=== PATIENT | female | born 1980 | race Caucasian/White ===

== ENCOUNTER 2020-06-02 16:57 | Outpatient (CLI) | payer OTHER, SELFPAY ==
--- NOTE | ~2020-06-02 | US_ITS ---
EXAMINATION: US thyroid DATE: 06/02/2020 17:37 INDICATION: Goiter. TECHNIQUE: Multiple ultrasound images of the thyroid were obtained. COMPARISON: Thyroid ultrasound 05/11/2019 FINDINGS: The right thyroid lobe measures 6.1 x 1.9 x 2.2 cm. The left thyroid lobe measures 5.8 x 1.9 x 2.4 c m. In the left thyroid lobe, there is a 7 mm solid, hypoechoic, pahsh-yyer-kajs nodule with smooth m argin without echogenic foci (TI-RADS TR4). In the left thyroid lobe, there is a 6 mm solid, very hyp oechoic, uuveu-ufws-skam nodule with smooth margin without echogenic foci (TR4). IMPRESSION: 1. Stable small thyroid nodules, likely not clinically significant. No follow-up is needed. Reviewed, dictated and finalized at location A. DUSTER IMPRESSION: 1. Stable small thyroid nodules, likely not clinically significant. No follow-u p is needed.
== END 2020-06-02 16:58 | disposition home or self-care (01) ==
PROVIDERS: PCP Family Medicine; Visit Provider Internal Medicine Endocrinology, Diabetes & Metabolism
DX: E04.2 Nontoxic multinodular goiter (principal)
CPT/HCPCS: 76536

== ENCOUNTER 2020-08-20 11:37 | Emergency (ER) | payer OTHER, SELFPAY ==
[2020-08-20 11:39] VITALS: BP 160/90; PULSE 86; RESP 18; TEMP 36.3; O2SAT 100
[2020-08-20 11:56] LABS: Glucose Point of Care 255 (65-105)
--- NOTE | 2020-08-20 12:14 | ED.GENADULT ---
HPI - General Adult General Chief complaint: Recheck/Abnormal Lab/Rx Stated complaint: High BS Time Seen by Provider: 08/20/20 11:55 Source: RN notes reviewed History of Present Illness HPI narrative: Patient presents to emergency department from home for elevated blood sugar. Patient states her blood sugars have been running high in the 3-4 100s over the past 3 days. She states that she is on insulin and has been taking all her medications as prescribed she states that with her elevated blood sugar she has been feeling fatigued denies any fevers or chills chest pain shortness of breath nausea vomiting diarrhea or any other symptoms Related Data Allergies Allergy/AdvReac Type Severity Reaction Status Date / Time azithromycin Allergy Unknown gi upset Verified 05/28/20 16:03 peanut oil Allergy Unknown Anaphylactic Verified 05/28/20 16:03 Shock Review of Systems Review of Systems: Narrative: Gen.: Denies fevers or chills ENT: Denies congestion Respiratory: Denies shortness of breath or cough CV: Denies chest pain or palpitations GI: Denies abdominal pain nausea, emesis or diarrhea Musculoskeletal: Denies back pain or muscle pain Neuro: Reports fatigue denies numbness or tingling Skin: Denies rash Except as documented, all other systems reviewed and negative PMFSH Past Medical History Medical History Diabetes Seizure Surgical History Surgical History H/O section H/O dilation and curettage Family History Family History Grandparent Family history of lung cancer Family history of malignant neoplasm of breast Other Family history of hypercholesterolemia Social History Social History Smoking status: Never smoker Smoking end date: 06/20/02 Alcohol intake: never Substance use: never Gender identity (if verbalized by the patient): Female Exam Narrative: Exam Narrative: APPEARANCE: No acute distress, nontoxic, resting in bed EYES: EOMI HEENT: Normocephalic, atraumatic, OMM RESPIRATORY: No respiratory distress Clear to auscultation bilaterally with no rhonchi wheezing or rales. CARDIOVASCULAR: Regular rate and rhythm without murmurs rubs or gallops. ABDOMINAL: Soft, nontender, nondistended, no rebound or guarding MUSCULOSKELETAl: Moves all extremities. No clubbing, cyanosis or edema. NEURO: Awake and alert. Following commands, speech normal, no focal deficits SKIN:: Warm, dry. No rashes lesions or abrasions PSYCHIATRIC: Normal affect/mood, Course Course Emergency Course: Called and discussed with TELEHEALTH CASE MANAGER on-call for patient's base filler Dr. Diaz. This time agrees with plan for discharge with patient follow-up as an outpatient states the patient may add a sliding scale bolus 2 hours after meals if needed Discussed with patient results of workup and diagnosis. Discussed need for follow-up with primary care, proper use of medication, and reasons to return to the emergency department. Patient understands and agrees to current treatment plan Vital Signs Vital signs: Vital Signs Temperature 97.3 F L 08/20/20 11:39 Pulse Rate 86 08/20/20 11:39 Respiratory Rate 18 08/20/20 11:39 Blood Pressure 160/90 H 08/20/20 11:39 Pulse Oximetry 100 08/20/20 11:39 Temperature 97.3 F L 08/20/20 11:39 Pulse Rate 86 08/20/20 11:39 Respiratory Rate 18 08/20/20 11:39 Blood Pressure 160/90 H 08/20/20 11:39 Pulse Oximetry 100 08/20/20 11:39 Medical Decision Making Vital Signs Vital Signs: Vital Signs Temperature 97.3 F L 08/20/20 11:39 Pulse Rate 86 08/20/20 11:39 Respiratory Rate 18 08/20/20 11:39 Blood Pressure 160/90 H 08/20/20 11:39 Pulse Oximetry 100 08/20/20 11:39 Temperature 97.3 F L 08/20/20 11:39 Pulse Rate 86
[2020-08-20 12:19] LABS: Basophils Absolute Auto 0.1 K/mm3 (0.0-0.1); Basophils Percent Auto 0.4 % (0.2-1.2); Eosinophils Absolute Auto 0.2 K/mm3 (0-0.3); Eosinophils Percent Auto 1.6 % (0-4.4); Hematocrit 42.8 % (37.0-47.0); Hemoglobin 14.5 g/dL (12.0-15.0); Immature Granulocyte Absolute 0.03 K/mm3 (0.00-0.031); Immature Granulocyte Percent A 0.3 % (0-0.5); Lymphocytes Absolute Auto 4.26 K/mm3 (0.9-3.2); Mean Corpuscular HGB Conc 33.9 g/dl (32-36); Mean Corpuscular Hemoglobin 29.8 pg (26-34); Mean Corpuscular Volume 87.9 fl (80-100); Mean Platelet Volume 10.1 fl (7.4-10.4); Monocytes Absolute Auto 0.7 K/mm3 (0.1-0.6); Monocytes Percent Auto 6.6 % (2.6-8.5); Neutrophils Percent Auto 53.1 % (45.5-73.1); Platelet Count Result 332 k/mm3 (150-375); Red Blood Count 4.87 M/mm3 (4.2-5.4); Red Cell Distribution Width 13.4 % (11.5-14.5); White Blood Count 11.2 K/mm3 (4.5-10.0)
[2020-08-20 12:24] LABS: Add Urine Microscopic? YES; Appearance Urine Clear (Clear); Bilirubin Urine Negative (Negative); Blood Urine Negative (Negative); Color Urine Yellow (Yellow); Glucose Urine UA 3+ mg/dL (Negative); Ketones Urine Negative (Negative); Leukocyte Esterase Ur Trace LEU/UL (Negative); Mucus Urine Rare /lpf; Nitrate Urine Negative (Negative); Protein Urine 1+ mg/dL (Negative); Specific Grav Ur 1.032 (1.001-1.035); Squamous Epithelial Cell Urine Many /hpf (Few); Urobilinogen Urine Negative mg/dL (<2.0); WBC Urine 0-3 /hpf
[2020-08-20] MEDS: SODIUM CHLORIDE 0.9% IV 1,000 ML 999 ML IV CONT (12:27)
[2020-08-20 12:39] LABS: Beta-Hydroxybutyrate/Acetoacetate 0.12 mmol/L (0.02-0.27)
[2020-08-20 12:59] LABS: Alanine Aminotransferase 36 U/L (4-35); Albumin Level 3.6 g/dL (3.5-5.1); Alkaline Phosphatase 97 U/L (38-126); Anion Gap 6 mmol/L (8-16); Aspartate Amino Transferase 34 U/L (14-36); Bilirubin,Total 0.2 mg/dL (0.2-1.3); Blood Urea Nitrogen 9 mg/dL (7-17); Calcium 8.4 mg/dL (8.4-10.2); Carbon Dioxide 27 mmol/L (22-30); Chloride 100 mmol/L (98-107); Estimated CRCL calculation 138 ml/min; Estimated Glomerular Filt Rate > 60; Glucose 304 mg/dL (65-105); Magnesium 1.6 mg/dL (1.6-2.3); Phosphorus 3.4 mg/dL (2.5-4.5); Potassium 4.2 mmol/L (3.4-5.0); Sodium 133 mmol/L (137-145)
[2020-08-20 14:10] LABS: Glucose Point of Care 228 (65-105)
== END 2020-08-20 15:12 | disposition home or self-care (01) ==
PROVIDERS: Emergency Provider Emergency Medicine; PCP Family Medicine
DX: E11.65 Type 2 diabetes mellitus with hyperglycemia (principal); Z79.4 Long term (current) use of insulin
CPT/HCPCS: 36415; 80053; 81001; 81025; 82010; 82948; 83735; 84100; 85025; 96360; 99283; J7030

== ENCOUNTER 2020-09-01 06:57 | Outpatient (CLI) | payer OTHER, SELFPAY ==
--- NOTE | ~2020-09-01 | CT_ITS ---
EXAMINATION: CT abdomen wo/w con DATE: 09/01/2020 07:43 INDICATION: Abnormal cortisol level. TECHNIQUE: Computed tomography (CT) of the abdomen was performed without and with 100 mL Omnipaque 35 0 intravenous contrast. Automated exposure control and iterative reconstruction technique were employ ed. The dose-length product was 2255.38 mGy-cm. COMPARISON: Chest CT 11/20/2018 FINDINGS: The visualized portions of the lung bases demonstrate mild atelectasis in lingula. No pleur al effusion. The heart size is normal. No pericardial effusion. There is diffuse hepatic steatosis. T he gallbladder, spleen, pancreas, and left adrenal gland are normal. There is a 14 mm mass in right a drenal gland measuring low-attenuation without change in size, consistent with an adenoma. There are simple cysts in the kidneys measuring up to 9 mm on the left. There is a 2.7 cm hemorrhagic cyst in l eft kidney. There is a 3 mm stone in right kidney. There is a 3 mm stone in left kidney. There are no dilated loops of bowel. There are no pathologically enlarged lymph nodes. There is no free intraperi toneal fluid. There is mild lumbar spondylosis. IMPRESSION: 1. 14 mm right adrenal adenoma. 2. Diffuse hepatic steatosis. Reviewed, dictated and finalized at location A.
== END 2020-09-01 06:58 | disposition home or self-care (01) ==
LOC: ANHIMG 06:59
PROVIDERS: PCP Family Medicine; Visit Provider Internal Medicine Endocrinology, Diabetes & Metabolism
DX: R94.7 Abnormal results of other endocrine function studies (principal); D35.01 Benign neoplasm of right adrenal gland; K76.0 Fatty (change of) liver, not elsewhere classified
CPT/HCPCS: 74170; Q9967

== ENCOUNTER 2021-03-02 11:23 | Outpatient (CLI) | payer OTHER, SELFPAY ==
--- NOTE | ~2021-03-02 | US_ITS ---
EXAMINATION: US venous doppler LE RT DATE: 03/02/2021 11:52 INDICATION: Right lower limb swelling TECHNIQUE: Simmons scale images without and with compression and Doppler images of the right lower extre mity veins were obtained. COMPARISON: None FINDINGS: The right common femoral vein, profunda femoral vein, femoral vein, popliteal vein, peronea l trunk, posterior tibial veins, and greater saphenous vein are patent. IMPRESSION: 1. Patent right lower extremity veins. No evidence of deep venous thrombosis. Reviewed, dictated and finalized at location A.
== END 2021-03-02 11:24 | disposition home or self-care (01) ==
LOC: ANHIMG 11:25
PROVIDERS: PCP Family Medicine; Visit Provider Physician Assistant
DX: M79.604 Pain in right leg (principal); M79.89 Other specified soft tissue disorders
CPT/HCPCS: 93971

== ENCOUNTER 2021-04-01 15:19 | Emergency (ER) | payer OTHER, SELFPAY ==
[2021-04-01 15:40] VITALS: BP 135/85; PULSE 86; RESP 18; TEMP 36.9; O2SAT 98
--- NOTE | 2021-04-01 16:38 | ED.GENADULT ---
HPI - General Adult General Chief complaint: Extremity Injury, Upper Stated complaint: Rt Arm Pain Time Seen by Provider: 04/01/21 16:23 Source: patient and RN notes reviewed Mode of arrival: ambulatory Limitations: no limitations History of Present Illness HPI narrative: Patient presents today complaining of pain to the right forearm and wrist x2 weeks that has been worsening since onset. Denies injury or trauma. Denies numbness or tingling in the arm or hand. Currently rates her pain 8/10 which increases with movement and gripping. MD complaint: Forearm and wrist pain Related Data Home Medications Medication Instructions Recorded Confirmed norethindrone 0.5 mg-ethinyl 1 tablet PO DAILY 10/28/20 03/25/21 estradiol 35 mcg tablet Allergies Allergy/AdvReac Type Severity Reaction Status Date / Time peanut oil Allergy Severe Anaphylactic Verified 04/01/21 15:43 Shock azithromycin Allergy Intermediate gi upset Verified 04/01/21 15:43 Review of Systems Review of Systems: CONSTITUTIONAL: Denies body aches, fever, chills, or sweats. EYES: Denies visual changes, redness, or discharge. ENT: Denies rhinorrhea, congestion, sore throat, or otalgia. CARDIOVASCULAR: Denies chest pain, palpitations, or edema. RESPIRATORY: Denies cough or dyspnea. GASTROINTESTINAL: Denies abdominal pain, nausea, vomiting, or diarrhea. GENITOURINARY: Denies dysuria or hematuria. SKIN: Denies rash, itching, or wounds. MUSCULOSKELETAL: Denies back pain, or myalgia. + Right forearm and wrist pain NEUROLOGIC: Denies headache, numbness, tingling, or weakness. PSYCH: Denies depression or anxiety. [facility] Past Medical History Medical History Chronic headaches Diabetes Seizure Surgical History Surgical History H/O section H/O dilation and curettage Family History Family History Grandparent Family history of lung cancer Family history of malignant neoplasm of breast Other Cerebrovascular accident Diabetes mellitus Family history of hypercholesterolemia Social History Social History Alcohol intake: never Substance use: never Gender identity (if verbalized by the patient): Female Comments At time of signature, I have reviewed and agree with nursing past medical, surgical, social and family history unless otherwise noted. Please see nursing chart for further information. There is no relevant family history pertinent to the presenting complaint Exam Narrative: GENERAL: Well-appearing, well-nourished, and in no acute distress. HEAD: Normocephalic, atraumatic. EYES: EOMI. No redness or drainage. Conjunctivae normal. ENT: Mucous membranes pink and moist. NECK: Normal AROM. CHEST: No respiratory distress. EXTREMITIES: Right arm: Patient localizes her pain to the right wrist. The elbow is nontender. The forearm is mildly tender at the distal ulnar area. No edema noted throughout the arm. No ecchymosis or erythema noted. Distal sensation intact. Capillary refill normal. Radial pulse normal. Full range of motion of the elbow and wrist without increased pain. SKIN: Warm, dry, no rash. Capillary refill normal. Normal skin turgor. NEURO: No focal deficits. Alert and oriented x3. Gait steady. PSYCH: Normal affect. No signs of depression or anxiety. Course Vital Signs Vital signs: Vital Signs Temperature 98.5 F 04/01/21 15:40 Pulse Rate 86 04/01/21 15:40 Respiratory Rate 18 04/01/21 15:40 Blood Pressure 135/85 04/01/21 15:40 Pulse Oximetry 98 04/01/21 15:40 Temperature 98.5 F 04/01/21 15:40 Pulse Rate 86 04/01/21 15:40 Respiratory Rate 18 04/01/21 15:40 Blood Pressure 135/85 04/01/21 15:40 Pulse Oximetry 98 04/01/21 15:40 Rev
== END 2021-04-01 16:51 | disposition home or self-care (01) ==
PROVIDERS: Emergency Provider Nurse Practitioner; PCP Family Medicine
DX: M77.9 Enthesopathy, unspecified (principal); E11.9 Type 2 diabetes mellitus without complications; G40.909 Epilepsy, unspecified, not intractable, without status epilepticus
CPT/HCPCS: 99212; G0463

== ENCOUNTER 2021-04-04 07:30 | Outpatient (CLI) | payer OTHER, SELFPAY ==
--- NOTE | ~2021-04-04 | MR_ITS ---
EXAMINATION: MR brain/brain stem wo/w con DATE: 04/04/2021 10:14 CDT INDICATION: Headache TECHNIQUE: Magnetic resonance imaging (MRI) of the brain and brainstem was performed without and with 20 cc MultiHance intravenous contrast. Sequences included sagittal and axial T1-weighted SE, axial d iffusion-weighted FS SE, axial T2*-weighted GRE, axial T2-weighted FLAIR Propeller, and axial T2-weig hted Propeller. Apparent diffusion coefficient (ADC) maps were created. COMPARISON: MRI dated 11/11/2018 FINDINGS: The brain volume and ventricular system are within normal limits. The brain parenchymal si gnal intensity pattern and kyle/white matter is normal and there is no evidence of hemorrhage, space occupying masses or infarctions. The flow signal voids of the major arterial structures about the [place] and within the aleksandr r dural venous sinuses appear grossly unremarkable and patent. The seventh and eighth cranial nerve complexes are normal. The mid sagittal image demonstrates a normal craniovertebral junction and tra us callosum. The paranasal sinuses are grossly unremarkable. No abnormal contrast enhancement was appreciated. IMPRESSION: 1: Unremarkable MRI of the brain. Reviewed, dictated and finalized at location A.
[2021-04-04 08:14] LABS: Estimated Glomerular Filt Rate > 60
== END 2021-04-04 07:31 | disposition home or self-care (01) ==
PROVIDERS: PCP Family Medicine; Visit Provider Psychiatry & Neurology Neurology
DX: G40.909 Epilepsy, unspecified, not intractable, without status epilepticus (principal); G89.29 Other chronic pain; R51.9 Headache, unspecified
CPT/HCPCS: 70553; A9577

== ENCOUNTER 2021-04-10 06:35 | Outpatient (CLI) | payer OTHER, SELFPAY ==
--- NOTE | 2021-04-10 11:35 | WPDNEUROLOGY ---
Neurology EEG Report General Information Date of Study: 04/10/21 TEST eeg DIAGNOSIS nocturnal seizures CONDITION OF RECORDING awake drowsy and sleep EEG NUMBER [id number] CLINICAL HISTORY patient reported she has history of seizures and migraines. Seizures are pretty well controlled for the migraines are almost every day EEG DESCRIPTION whole record consists of low voltage to medium voltage 15 to 21 hertz per 2nd beta activity admixed with intermittent low voltage to medium voltage 5 to 7 hertz per 2nd theta activity. Bilateral symmetrical sleep activity seen during sleep. Hyperventilation not done photic stimulation produced normal drive. Non paroxysmal. Nonfocal. Nonlateralizing. IMPRESSION No significant abnormalities noted
== END 2021-04-10 06:36 | disposition home or self-care (01) ==
PROVIDERS: PCP Family Medicine; Visit Provider Psychiatry & Neurology Neurology
DX: R56.9 Unspecified convulsions (principal)
CPT/HCPCS: 95816

== ENCOUNTER 2021-04-28 10:26 | Emergency (ER) | payer OTHER, SELFPAY ==
--- NOTE | ~2021-04-28 | XR_ITS ---
EXAMINATION: XR thoracic spine 3V DATE: 04/28/2021 11:18 INDICATION: Mid back pain TECHNIQUE: AP, lateral and lateral swimmer's views of the thoracic spine were obtained. COMPARISON: 11/21/2003 FINDINGS: There is no fracture, dislocation, or subluxation. The vertebral body heights, alignment, a nd intervertebral disc spaces are normal. The paravertebral soft tissues are unremarkable. IMPRESSION: 1. No acute osseous abnormality. Reviewed, dictated and finalized at location B. IFIED FIRE INVESTIGATOR
--- NOTE | ~2021-04-28 | XR_ITS ---
EXAMINATION: XR lumbar spine min 4V DATE: 04/28/2021 11:18 INDICATION: Low back pain TECHNIQUE: Anteroposterior, lateral, and bilateral oblique views of the lumbar spine, and cone-down l ateral view of the lumbosacral junction were obtained. COMPARISON: None. FINDINGS: There are 2 mm stable retrolisthesis of L5 on S1. Vertebral body alignment is otherwise nor mal. The vertebral body heights are maintained. There is no fracture. IMPRESSION: 1. Mild lumbar spondylosis without acute findings or significant interval change. Reviewed, dictated and finalized at location B. ED OPERATOR IMPRESSION: 1. Mild lumbar spondylosis without acute findings or significant interval alona gilbert
[2021-04-28 10:28] VITALS: BP 152/97; PULSE 82; RESP 20; TEMP 36.3; O2SAT 99
--- NOTE | 2021-04-28 12:58 | ED.BACK ---
HPI - Back Pain/Injury General Chief Complaint: Back Pain/Injury <Carole Diaz PA-C - Last Filed: 04/28/21 13:09> Stated Complaint: back pain, recent fall <Carole Diaz PA-C - Last Filed: 04/28/21 13:09> Time Seen by Provider: 04/28/21 10:48 <Carole Diaz PA-C - Last Filed: 04/28/21 13:09> Source: patient <MIKEY Mcclure Last Filed: 04/28/21 13:09> Mode of arrival: ambulatory <MIKEY Mcclure Last Filed: 04/28/21 13:09> Limitations: no limitations <Carole Diaz PA-C - Last Filed: 04/28/21 13:09> History of Present Illness HPI Narrative: Patient is a 32-year-old female with seizure history presenting with chief complaint of thoracic and lumbar back pain that began on Tuesday after having a seizure in the bathroom. Patient suspects that she possibly hit her back on the ledge while falling but is unsure. Patient reports that she has been taking cyclobenzaprine that was previously prescribed to her for her knee pain but has not remitted her symptoms. Patient denies any headache, loss of bowel or bladder function, saddle paresthesia, nausea, vomiting, diarrhea or any other symptoms. <Carole Diaz PA-C - Last Filed: 04/28/21 13:09> Related Data Home Medications: Home Medications Medication Instructions Recorded Confirmed ergocalciferol (vitamin D2) 04/28/21 insulin glargine [Lantus Solostar SUBCUT 04/28/21 U-100 Insulin] insulin lispro SUBCUT 04/28/21 levetiracetam PO 04/28/21 lisinopril 04/28/21 montelukast mg 04/28/21 norethindrone-ethin estradiol tablet 04/28/21 [Nortrel 1/35 (28)] pioglitazone mg 04/28/21 semaglutide [Ozempic] mg SUBCUT 04/28/21 spironolactone 04/28/21 <Carole Diaz PA-C - Last Filed: 04/28/21 13:09> Allergies/Adverse Reactions: Allergies Allergy/AdvReac Type Severity Reaction Status Date / Time peanut oil Allergy Severe Dyspnea / Verified 04/28/21 10:53 SOB azithromycin Allergy Intermediate gi upset Verified 04/28/21 10:53 <Carole Diaz PA-C - Last Filed: 04/28/21 13:09> Review of Systems Review of Systems: CONSTITUTIONAL: Denies fever, chills, or sweats. EYES: Denies visual changes, redness, or discharge. ENT: Denies rhinorrhea, congestion, sore throat, or otalgia. CARDIOVASCULAR: Denies chest pain, palpitations, or edema. RESPIRATORY: Denies cough or dyspnea. GASTROINTESTINAL: Denies abdominal pain, nausea, vomiting, or diarrhea. GENITOURINARY: Denies dysuria or hematuria. SKIN: Denies rash or itching. MUSCULOSKELETAL: Reports back pain, denies joint pain, or myalgia. NEUROLOGIC: Denies headache, numbness, dizziness, or weakness. PSYCHIATRIC: Denies anxiety or depression. <Carole Diaz PA-C - Last Filed: 04/28/21 13:09> PENDING SALE TO [facility] Past Medical History Medical History: Medical History Chronic headaches Diabetes Seizure <Carole Diaz PA-C - Last Filed: 04/28/21 13:09> Surgical History Surgical History: Surgical History H/O section H/O dilation and curettage <Carole Diaz PA-C - Last Filed: 04/28/21 13:09> Family History Family History: Family History Grandparent Family history of lung cancer Family history of malignant neoplasm of breast Other Cerebrovascular accident Diabetes mellitus Family history of hypercholesterolemia <Carole Diaz PA-C - Last Filed: 04/28/21 13:09> Social History Social History: Social History Alcohol intake: never Substance use: never Gender identity (if verbalized by the patient): Female <Carole Diaz PA-C - Last Filed: 04/28/21 13:09> Exam Narrative: GENERAL: Well-appearing, well-nourished, and in no acute distress. HEAD: Normocephalic, atrau
== END 2021-04-28 13:42 | disposition home or self-care (01) ==
PROVIDERS: Emergency Provider General Practice; PCP Family Medicine
DX: M54.9 Dorsalgia, unspecified (principal); M54.50 Low back pain, unspecified; E11.9 Type 2 diabetes mellitus without complications; Z79.4 Long term (current) use of insulin
CPT/HCPCS: 72072; 72110; 99283

== ENCOUNTER 2021-05-04 14:58 | Outpatient (CLI) | payer OTHER, SELFPAY ==
[2021-05-04 15:39] LABS: Add Urine Microscopic? YES; Appearance Urine Cloudy (Clear); Bacteria Urine Trace /hpf; Bilirubin Urine Negative (Negative); Blood Urine Negative (Negative); Color Urine Yellow (Yellow); Glucose Urine UA 3+ mg/dL (Negative); Ketones Urine Negative (Negative); Leukocyte Esterase Ur Trace LEU/UL (NEGATIVE); Mucus Urine Rare /lpf; Nitrate Urine Negative (Negative); Protein Urine Negative (Negative); Specific Grav Ur 1.027 (1.001-1.035); Squamous Epithelial Cell Urine Many /hpf (Few)
== END 2021-05-04 14:59 | disposition home or self-care (01) ==
LOC: ANHLAB 15:00
PROVIDERS: PCP Family Medicine; Visit Provider Physician Assistant
DX: M54.9 Dorsalgia, unspecified (principal)
CPT/HCPCS: 81001

== ENCOUNTER 2021-05-11 16:21 | Outpatient (CLI) | payer OTHER, SELFPAY ==
--- NOTE | ~2021-05-11 | CT_ITS ---
EXAMINATION: CT abdomen pelvis wo con DATE: 05/11/2021 16:48 INDICATION: Calculus of kidney. TECHNIQUE: Computed tomography (CT) of the abdomen and pelvis was performed without intravenous contr ast. Automated exposure control and iterative reconstruction technique were employed. The dose-length product was 1222.19 mGy-cm. COMPARISON: CT abdomen 09/01/2020 FINDINGS: The visualized portions of the lung bases are clear without pneumonia or pleural effusion. The heart size is normal. No pericardial effusion. There is diffuse hepatic steatosis. The gallbladde r, spleen, pancreas, and left adrenal gland are normal. There is a 14 mm mass in right adrenal gland measuring low attenuation, consistent with an adenoma. There is a 2 mm stone in right kidney. There i s a 7 mm cyst in right kidney. There is a 3 mm stone in left kidney. There is a 3.[address] in left kidney. There are no dilated loops of bowel. The appendix is normal. There are no patholog ically enlarged lymph nodes. There is no free intraperitoneal fluid. There is mild lumbar spondylosis . IMPRESSION: 1. Small bilateral nonobstructing kidney stones. 2. Diffuse hepatic steatosis. Reviewed, dictated and finalized at location B. CTOR CARDIOVASCULAR
== END 2021-05-11 16:22 | disposition home or self-care (01) ==
LOC: ANHIMG 16:25
PROVIDERS: PCP Family Medicine; Visit Provider Physician Assistant
DX: N20.0 Calculus of kidney (principal); N28.1 Cyst of kidney, acquired
CPT/HCPCS: 74176

== ENCOUNTER 2021-05-20 06:40 | Outpatient (CLI) | payer OTHER, SELFPAY ==
[2021-05-20 08:08] LABS: Hemoglobin A1C 9.5 % (<5.7)
[2021-05-20 08:28] LABS: LDL Cholesterol Direct 127 mg/dL
[2021-05-20 08:31] LABS: Alanine Aminotransferase 51 U/L (4-35); Albumin Level 4.1 g/dL (3.5-5.1); Alkaline Phosphatase 109 U/L (38-126); Anion Gap 7 mmol/L (8-16); Aspartate Amino Transferase 43 U/L (14-36); Bilirubin,Total 0.3 mg/dL (0.2-1.3); Blood Urea Nitrogen 11 mg/dL (7-17); Calcium 9.2 mg/dL (8.4-10.2); Carbon Dioxide 25 mmol/L (22-30); Chloride 101 mmol/L (98-107); Cholesterol 189 mg/dL (0-200); Estimated Glomerular Filt Rate > 60; Glucose 252 mg/dL (65-110); HDL Direct 45 mg/dL; Sodium 133 mmol/L (137-145); Triglycerides 81 mg/dL (<150)
[2021-05-20 08:34] LABS: Free T4 Free Thyroxine 1.06 ng/mL (0.78-2.19); Vitamin D 25 Hydroxy 19.4 ng/mL
[2021-05-20 08:50] LABS: Thyroid Stimulating Hormone 0.846 uIU/mL (0.465-4.680)
[2021-05-20 09:30] LABS: Creatinine Urine 112.4 mg/dL
[2021-05-20 09:34] LABS: MALB Creatinine Ratio 5.8 mg/g (0-30); Microalbumin Urine Random 6.5 mg/L (0-16.7)
[2021-05-22 19:41] LABS: Glutamic acid decarboxylase AA <5 IU/mL (<5)
[2021-05-22 21:31] LABS: Adrenocorticotropic Hormone <5 pg/mL (6-50)
[2021-05-23 07:16] LABS: C-Peptide 2.16 ng/mL (0.80-3.85)
[2021-05-23 09:45] LABS: DHEA-Sulfate 67 mcg/dL (23-266)
[2021-05-26 21:46] LABS: Zinc Transporter 8 Antibody <10 U/mL (<15)
[2021-05-27 15:32] LABS: PRA 25.19 ng/mL/h (0.25-5.82)
[2021-05-31 21:16] LABS: Islet Cell Antibody Screen NEGATIVE (NEGATIVE)
== END 2021-05-20 06:41 | disposition home or self-care (01) ==
LOC: ANHLAB 06:42
PROVIDERS: PCP Family Medicine; Visit Provider Internal Medicine Endocrinology, Diabetes & Metabolism
DX: E11.9 Type 2 diabetes mellitus without complications (principal); Z79.4 Long term (current) use of insulin
CPT/HCPCS: 36415; 80053; 80061; 82024; 82043; 82088; 82306; 82533; 82627; 83036; 84244; 84439; 84443; 84681; 86341

== ENCOUNTER 2021-07-27 10:34 | Outpatient (RCR) | payer OTHER, SELFPAY | END 2021-07-27 10:34 | disposition home or self-care (01) | LOC: ANHPT 10:34 | PROVIDERS: PCP Family Medicine; Visit Provider Physician Assistant Medical | DX: M54.50 Low back pain, unspecified (principal) | CPT/HCPCS: 99199 ==

== ENCOUNTER 2021-08-11 15:08 | Outpatient (CLI) | payer OTHER, SELFPAY ==
[2021-08-11 15:39] LABS: Anion Gap 6 mmol/L (8-16); Blood Urea Nitrogen 11 mg/dL (7-17); Calcium 8.9 mg/dL (8.4-10.2); Carbon Dioxide 27 mmol/L (22-30); Chloride 102 mmol/L (98-107); Estimated Glomerular Filt Rate > 60; Glucose 171 mg/dL (65-110); Potassium 3.9 mmol/L (3.4-5.0); Sodium 135 mmol/L (137-145)
== END 2021-08-11 15:09 | disposition home or self-care (01) ==
LOC: ANHSURGERY 15:09
PROVIDERS: Anesthesiology; PCP Family Medicine; Visit Provider Plastic Surgery
DX: Z01.812 Encounter for preprocedural laboratory examination (principal); E11.9 Type 2 diabetes mellitus without complications
CPT/HCPCS: 36415; 80048

== ENCOUNTER 2021-08-13 00:20 | Day surgery (SDC) | payer OTHER, SELFPAY ==
[2021-08-10 09:28] VITALS: BMI 51.5
--- NOTE | 2021-08-10 09:42 | PC.NURSE ---
Report to the Outpatient Waiting Room, entrance under the green pavilion located off [facility], at time 7:15 on date 08/13/21. OR Time: 9:15. - You and your visitor will be asked a series of questions to screen for COVID 19 for your protection. - A mask is required within the hospital. One visitor will be allowed to accompany the patient into the hospital. Patients visitor will be instructed to remain with patient at all times or leave the building. We will allow the visitor to come back to the postoperative area when patient is ready. Preoperative COVID Testing Requirements: No COVID Test needed if: (proof is required; if not received patient will have Rapid Test prior to entry) - Patient has received COVID Vaccine at least 14 days prior to procedure date or - Patient has positive COVID test result within last 90 days of surgery date. COVID Test needed if above criteria is not met Patients may have clear liquids (water, carbonated beverages, clear teas, apple juice) until 3 hours prior to surgery (6:15) with a maximum of 20 ounces. - No food from midnight until time of surgery Take the following medications with a SIP of water the morning of surgery: KEPPRA Medications to discontinue per physician: VITAMINS/SUPPLEMENTS Date to take last dose: 08/09/21 Please no make-up, nail prydeinig, hairspray, perfume, deodorant, or body powder the day of surgery. No jewelry (including any body piercings) or valuables the day of surgery, leave them at home. Please take a shower or bath the night before, or the morning of, surgery with an antibacterial soap. Wear comfortable, loose fitting clothing. - Jewelry must be removed prior to entering the operating room. Rings and piercings that are not removed may be cut off. - The hospital will not accept responsibility for valuables. - Please leave all valuables, including medications, at home the day of surgery. If you are going home after surgery, a licensed chair car driver must drive you home. - NO public transportation without another adult. - We recommend that an adult stay with you for 24 hours following discharge. - We also recommend that you do not drive, make important decision, drink alcoholic beverages, or take any drugs that were not prescribed by your health care provider for at least 24 hours after your discharge time. Follow any additional instructions given to you from your surgeon. Telephone instructions given to CHHAYA CH and asked if any additional questions and then verbalized understanding. Patient advised to call surgeon office or pre surgery nurse liaison [phone] if any additional questions.
--- NOTE | 2021-08-13 07:12 | WPDHPUPDATE1 ---
History and Physical Update Update Date/Time: 08/13/21 07:12 History and Physical has been reviewed, including an updated exam of the patient. There are NO changes in the patient's condition. Risks, benefits, and alternatives have been discussed and questions answered. Patient agrees to proceed with procedure.
[2021-08-13 08:00] VITALS: BP 123/72; PULSE 92; RESP 16; TEMP 37.1; O2SAT 98
[2021-08-13] MEDS: LACTATED RINGERS 1,000 ML 30 ML IV CONT (08:10)
[2021-08-13 08:12] LABS: Glucose Point of Care 126 mg/dl (65-105)
--- NOTE | 2021-08-13 08:12 | WPDANESEPPF ---
Anes - Initial Pre Proc Eval Procedure: Operation Date: 08/13/21 09:15 Proposed Procedures p Right Open Carpal Tunnel Release - Fredis Hinojosa MD Date/Time: 08/13/21 08:12 Surgeon: Fredis Hinojosa MD Pre Op Diagnosis: right carpal tunnel syndrome Patient Data Age: 40 Gender: F Height: 1.57 m Weight: 127.91 kg Allergies Allergy/AdvReac Type Severity Reaction Status Date / Time peanut oil Allergy Severe Dyspnea / Verified 08/10/21 09:16 SOB azithromycin AdvReac Intermediate gi upset Verified 08/12/21 13:47 Home Medications Medication Instructions Recorded Confirmed Type levetiracetam 500 mg PO BID 04/28/21 08/10/21 History montelukast 10 mg PO HS 04/28/21 08/10/21 History norethindrone-ethin estradiol 1 tablet PO HS 04/28/21 08/10/21 History [Nortrel 1/35 (28)] pioglitazone 20 mg PO HS 04/28/21 08/10/21 History semaglutide [Ozempic] 1 mg SUBCUT WEEKLY 04/28/21 08/10/21 History spironolactone 50 mg PO HS 04/28/21 08/10/21 History lisinopril 20 mg tablet See Rx Instructions .ROUTE 07/03/21 08/10/21 Rx .COMPLEX #90 tablet cholecalciferol (vitamin D3) 125 mcg PO DAILY 08/10/21 08/10/21 History [Vitamin D3] insulin regular hum U-500 conc 40 unit SUBCUT HS 08/10/21 08/10/21 History [Humulin R U-500 (Conc) Kwikpen] insulin regular hum U-500 conc 140 unit SUBCUT TIDWM 08/10/21 08/10/21 History [Humulin R U-500 (Conc) Kwikpen] Laboratory Tests 08/13/21 08:00 POC Capillary Glucose Pending Patient hx anesthesia problems: none Family hx anesthesia problems: none Results Review: All pre-operative results and documents have been reviewed as part of the pre-operative evaluation. [facility] Past Medical History Medical History Chronic headaches Diabetes Seizure Surgical History Surgical History H/O section H/O dilation and curettage Family History Family History Grandparent Family history of lung cancer Family history of malignant neoplasm of breast Other Cerebrovascular accident Diabetes mellitus Family history of hypercholesterolemia Social History Social History Alcohol intake: never Substance use: never Substance use type: does not use Living arrangements: with family Gender identity (if verbalized by the patient): Female Spiritual care concerns: No Anes - Eval Final PreProcedure Day of Procedure 08/13/21 08:12 Patient weight: super morbidly obese Heart: regular rate and rhythm Lungs: clear to auscultation Airway: Mallampati scale class III Neurological: alert and oriented Last oral intake: >/= 8 hours ASA classification: IV Emergent: no Anesthetic plan: proceed Anesthesia type and monitoring: general GIVS and standard monitoring Results Review: All pre-operative results and documents have been reviewed as part of the pre-operative evaluation. Informed Consent: The patient's anesthetic plan and its attendant risks and benefits were discussed with the patient/family/POA. Questions were solicited and answers provided to the satisfaction of the patient/family/POA.
[2021-08-13 09:20] VITALS: BP 118/61; PULSE 92; RESP 16; O2SAT 96
[2021-08-13 09:24] LABS: Glucose Point of Care 120 mg/dl (65-105)
--- NOTE | 2021-08-13 09:29 | W.PM.PROC2 ---
Procedure Note - Detailed Date of Procedure 08/13/21 Pre-op Diagnosis right carpal tunnel syndrome Post-op Diagnosis same Procedure Performed Right open carpal tunnel release Surgeon Fredis Hinojosa MD Anesthesia MAC Description of Procedure The of right carpal tunnel site was marked on the patient holding area. She was taken to operating she was placed supine on the operating table. A time-out was held confirmed. The site was remarked and locally infiltrated with 1% lidocaine with epinephrine. The extremity was exsanguinated with an Piotr wrap and the tourniquet was inflated to 250 mmHg. The incision was made as marked and blunt dissection revealed the palmar aponeurosis. This was incised with a 15. Blade. Further dissection revealed the transverse retinaculum. This was incised with a 15. Blade. Under 3 point retraction the ligament was divided distally and then proximally to completely release it. No unusual anatomy was noted. The skin was closed with interrupted 5 0 nylon suture. The patient was transferred from the operating room stable condition she is discharge instructions wound care follow-up and a prescription hydrocodone 5/325 number 7. Estimated Blood Loss 0 Drains No Packing No Pathology none sent Complications No immediate complications Condition stable Disposition same day
[2021-08-13 09:50] VITALS: BP 136/66; PULSE 72; RESP 16
== END 2021-08-13 10:15 | disposition home or self-care (01) ==
PROVIDERS: PCP Family Medicine; Visit Provider Plastic Surgery
PROC: (CPT 64721; principal; 2021-08-13 09:15)
DX: G56.01 Carpal tunnel syndrome, right upper limb (principal); E11.9 Type 2 diabetes mellitus without complications; G40.909 Epilepsy, unspecified, not intractable, without status epilepticus; Z79.4 Long term (current) use of insulin; Z79.899 Other long term (current) drug therapy; E66.01 Morbid (severe) obesity due to excess calories; Z68.43 Body mass index [BMI] 50.0-59.9, adult
CPT/HCPCS: 64721; 82948; A9270; J2250; J2704; J7120

== ENCOUNTER 2021-08-26 00:18 | Day surgery (SDC) | payer OTHER, SELFPAY ==
[2021-08-25 15:19] VITALS: BMI 52.7
--- NOTE | 2021-08-25 15:24 | PC.NURSE ---
Report to the Outpatient Waiting Room, entrance under the green pavilion located off [facility], at time 1330 on date 08/26/21. OR Time: 1530. - You and your visitor will be asked a series of questions to screen for COVID 19 for your protection. - A mask is required within the hospital. One visitor will be allowed to accompany the patient into the hospital. Patients visitor will be instructed to remain with patient at all times or leave the building. We will allow the visitor to come back to the postoperative area when patient is ready. Preoperative COVID Testing Requirements: No COVID Test needed if: (proof is required; if not received patient will have Rapid Test prior to entry) - Patient has received COVID Vaccine at least 14 days prior to procedure date or - Patient has positive COVID test result within last 90 days of surgery date. COVID Test needed if above criteria is not met Patients may have clear liquids (water, carbonated beverages, clear teas, apple juice) until 3 hours prior to surgery with a maximum of 20 ounces. - No food from midnight until time of surgery Take the following medications with a SIP of water the morning of surgery: KEPPRA, 1/2 AM INSULIN DOSE Medications to discontinue per physician: VITAMINS/SUPPLEMENTS Date to take last dose: NO MORE UNTIL AFTER SURGERY Please no make-up, nail trinidadian, hairspray, perfume, deodorant, or body powder the day of surgery. No jewelry (including any body piercings) or valuables the day of surgery, leave them at home. Please take a shower or bath the night before, or the morning of, surgery with an antibacterial soap. Wear comfortable, loose fitting clothing. - Jewelry must be removed prior to entering the operating room. Rings and piercings that are not removed may be cut off. - The hospital will not accept responsibility for valuables. - Please leave all valuables, including medications, at home the day of surgery. If you are going home after surgery, a licensed mechanic welder truck driver must drive you home. - NO public transportation without another adult. - We recommend that an adult stay with you for 24 hours following discharge. - We also recommend that you do not drive, make important decision, drink alcoholic beverages, or take any drugs that were not prescribed by your health care provider for at least 24 hours after your discharge time. Follow any additional instructions given to you from your surgeon. Telephone instructions given to CHHAYA CH and asked if any additional questions and then verbalized understanding. Patient advised to call surgeon office or pre surgery nurse liaison [phone] if any additional questions.
--- NOTE | 2021-08-26 13:13 | P.PNAN_ITS ---
Anes - Initial Pre Proc Eval Procedure: Operation Date: 08/26/21 15:30 Proposed Procedures p Hysteroscopy, Dilation and Curettage - Shahzad Guaman MD Date/Time: 08/26/21 13:13 Surgeon: Shahzad Guaman MD Pre Op Diagnosis: heavy bleeding, cramping Patient Data Age: 41 Gender: F Height: 1.57 m Weight: 130.6 kg Allergies Allergy/AdvReac Type Severity Reaction Status Date / Time peanut oil Allergy Severe Dyspnea / Verified 08/26/21 13:26 SOB azithromycin AdvReac Intermediate gi upset Verified 08/26/21 13:26 Home Medications Medication Instructions Recorded Confirmed Type Nortrel /35 (28) 1 tablet PO HS 04/28/21 08/25/21 History Ozempic 1 mg SUBCUT WEEKLY 04/28/21 08/25/21 History levetiracetam 500 mg PO BID 04/28/21 08/26/21 History montelukast 10 mg PO HS 04/28/21 08/25/21 History pioglitazone 20 mg PO HS 04/28/21 08/25/21 History spironolactone 50 mg PO HS 04/28/21 08/25/21 History lisinopril 20 mg tablet See Rx Instructions .ROUTE 07/03/21 08/25/21 Rx .COMPLEX #90 tablet Humulin R U-500 (Conc) Kwikpen 40 unit SUBCUT HS 08/10/21 08/25/21 History Humulin R U-500 (Conc) Kwikpen 140 unit SUBCUT TIDWM 08/10/21 08/25/21 History cholecalciferol (vitamin D3) 125 mcg PO DAILY 08/10/21 08/25/21 History [Vitamin D3] Patient hx anesthesia problems: none Family hx anesthesia problems: none Results Review: All pre-operative results and documents have been reviewed as part of the pre-operative evaluation. [facility] Past Medical History Medical History Chronic headaches Diabetes Essential (primary) hypertension Seizure Surgical History Surgical History H/O section H/O dilation and curettage Family History Family History Grandparent Family history of lung cancer Family history of malignant neoplasm of breast Other Cerebrovascular accident Diabetes mellitus Family history of hypercholesterolemia Social History Social History Smoking status: Never smoker Alcohol intake: never Substance use: never Substance use type: does not use Living arrangements: with family Gender identity (if verbalized by the patient): Female Sexual Orientation (if Verbalized by the Patient): Straight or Heterosexual Spiritual care concerns: No Anes - Eval Final PreProcedure Day of Procedure 08/26/21 13:13 Patient weight: super morbidly obese Heart: regular rate and rhythm Lungs: clear to auscultation and normal air movement Airway: Mallampati scale class II Neurological: alert and oriented Last oral intake: >/= 8 hours ASA classification: III Emergent: no Anesthetic plan: proceed Anesthesia type and monitoring: general GIVS and LMA and standard monitoring Results Review: All pre-operative results and documents have been reviewed as part of the pre-operative evaluation. Informed Consent: The patient's anesthetic plan and its attendant risks and benefits were discussed with the patient/family/POA. Questions were solicited and answers provided to the satisfaction of the patient/family/POA.
--- NOTE | 2021-08-26 13:45 | PM.IMHP ---
H&P: HPI History of Present Illness Date/Time: 08/26/21 13:45 41 y/o with heavy, irregular vaginal bleeding, despite treatment with a combined oral contraceptive. This most recent episode of vaginal bleeding included cramping requiring analgesic therapy. Chief Complaint: Bleeding and pain Review of Systems Review of Systems: All systems reviewed & are unremarkable except as noted in HPI and below PMFSH Past Medical History Medical History Chronic headaches Diabetes Essential (primary) hypertension Seizure Surgical History Surgical History H/O section H/O dilation and curettage Family History Family History Grandparent Family history of lung cancer Family history of malignant neoplasm of breast Other Cerebrovascular accident Diabetes mellitus Family history of hypercholesterolemia Social History Social History Smoking status: Never smoker Alcohol intake: never Substance use: never Substance use type: does not use Living arrangements: with family Gender identity (if verbalized by the patient): Female Sexual Orientation (if Verbalized by the Patient): Straight or Heterosexual Spiritual care concerns: No Meds Home Medications and Allergies Home Medications Medication Instructions Recorded Confirmed Type Nortrel 35 (28) 1 tablet PO HS 04/28/21 08/25/21 History Ozempic 1 mg SUBCUT WEEKLY 04/28/21 08/25/21 History levetiracetam 500 mg PO BID 04/28/21 08/26/21 History montelukast 10 mg PO HS 04/28/21 08/25/21 History pioglitazone 20 mg PO HS 04/28/21 08/25/21 History spironolactone 50 mg PO HS 04/28/21 08/25/21 History lisinopril 20 mg tablet See Rx Instructions .ROUTE 07/03/21 08/25/21 Rx .COMPLEX #90 tablet Humulin R U-500 (Conc) Kwikpen 40 unit SUBCUT HS 08/10/21 08/25/21 History Humulin R U-500 (Conc) Kwikpen 140 unit SUBCUT TIDWM 08/10/21 08/25/21 History cholecalciferol (vitamin D3) 125 mcg PO DAILY 08/10/21 08/25/21 History [Vitamin D3] Allergies Allergy/AdvReac Type Severity Reaction Status Date / Time peanut oil Allergy Severe Dyspnea / Verified 08/26/21 13:26 SOB azithromycin AdvReac Intermediate gi upset Verified 08/26/21 13:26 Exam Const: Orientation/consciousness: patient oriented x3 Other: Well-developed, well-nourished female in no acute distress. Neck: Thyroid: thyroid normal Lymphatic: no lymphadenopathy noted (in neck, axilla or inguinal nodes) Resp: Effort & Inspection: normal respiratory effort Auscultation: clear to auscultation bilaterally Cardio: Rate: regular rate Rhythm: regular rhythm Heart sounds: S1 normal heart sound present and S2 normal heart sound present GI: Other: ABD: Soft, nontender, nondistended. No guarding or rebound tenderness. No hepatosplenomegaly. : General: Yes no CVA tenderness Other: Deferred to OR Back/Spine/Pelvis: Back: no CVA tenderness Skin: General skin exam: normal color and no rashes or lesions noted Neuro: General: patient oriented x3 Extrem: Other: Extremities: nontender with no edema Psych: Mental Status: mental status grossly normal Affect: normal affect Assessment and Plan Assessment and plan (1) Menometrorrhagia: Code(s): N92.1 - Excessive and frequent menstruation with irregular cycle Status: Acute Assessment and Plan: A: Menometrorrhagia with dysmenorrhea, refractory to conservative management. P: Offered hysteroscopy with dilation and sharp curettage. She understands risks of surgery to include risks of anesthesia, risks of pain, infection, bleeding, blood products, thromboembolic phenomena and damage to adjacent structures such as bowel, bladder, ureters, blood vessels and nerves. She understands all these risks and elects
[2021-08-26 13:46] VITALS: BMI 51.2
[2021-08-26 13:47] VITALS: BP 142/93; PULSE 74; RESP 18; TEMP 36.8; O2SAT 99
[2021-08-26] MEDS: ACETAMINOPHEN 500 MG TABLET 1000 MG PO (13:51)
[2021-08-26] MEDS: LACTATED RINGERS 1,000 ML 30 ML IV CONT ×2 (14:10→16:57)
--- NOTE | 2021-08-26 14:24 | WPDHPUPDATE1 ---
History and Physical Update Update Date/Time: 08/26/21 14:24 History and Physical has been reviewed, including an updated exam of the patient. There are NO changes in the patient's condition. Risks, benefits, and alternatives have been discussed and questions answered. Patient agrees to proceed with procedure.
--- NOTE | 2021-08-26 14:26 | SUR.PREOP ---
1400; PT HAS DIABETIC MONITORING DEVICE ON HER LT UPPER/OUTER ARM. CONTINUOUS MONITORING OF BLOOD SUGAR TO PHONE.
--- NOTE | 2021-08-26 16:05 | W.PM.PROC2 ---
Procedure Note - Detailed Date of Procedure 08/26/21 Pre-op Diagnosis Menorrhagia Dysmenorrhea Post-op Diagnosis Same Procedure Performed Hysteroscopy Dilation and sharp curettage Surgeon Shahzad Guaman MD Anesthesia MAC and Local (1% lidocaine) Findings Unremarkable endometrium. Both tubal ostia seen. Description of Procedure The patient was taken to the operating room where she was prepared and draped in the usual sterile fashion in the dorsal lithotomy position. The bladder was drained with a red rubber catheter. A sterile speculum was placed into the vagina. The anterior lip of the cervix was grasped with single-tooth tenaculum. Ten mL of 1% lidocaine was administered in a paracervical block. The cervix was then gently dilated using Hegar dilators until an 8 mm dilator could be passed. Hysteroscopy was performed using sterile saline as a distention medium. Findings are as noted above. Sharp curettage was then performed, and endometrial curettings were collected on a Telfa pad and passed off to be sent to pathology. Hemostasis was excellent. Sponge, lap, needle and instrument counts were correct. The patient was awakened and taken to the recovery room in stable condition. I was present and scrubbed through the entire procedure. Estimated Blood Loss 5 Drains No Packing No Pathology Yes (endometrial curettings) Complications None Condition Stable Disposition PACU
[2021-08-26 16:10] VITALS: BP 107/67; PULSE 57; RESP 16; O2SAT 100
[2021-08-26 16:16] LABS: Glucose Point of Care 134 mg/dl (65-105)
[2021-08-26] MEDS: fentaNYL CITRATE INJ (*CRX) 100 MCG/2 ML VIAL 25 MCG IV PUSH ×3 (16:23→16:47)
[2021-08-26 16:40] VITALS: BP 111/67; PULSE 56; RESP 18
[2021-08-26] MEDS: oxyCODONE HCL (*CRX) 5 MG TAB IR PO (16:59)
[2021-08-26 17:10] VITALS: BP 115/78; PULSE 54; RESP 16
== END 2021-08-26 17:30 | disposition home or self-care (01) ==
PROVIDERS: PCP Family Medicine; Visit Provider Obstetrics & Gynecology
PROC: 0U5B8ZZ Destruction of Endometrium, Via Natural or Artificial Opening Endoscopic (ICD-10-PCS; CPT 58563; principal; 2021-08-26 15:30)
DX: N92.0 Excessive and frequent menstruation with regular cycle (principal); N94.6 Dysmenorrhea, unspecified; E11.9 Type 2 diabetes mellitus without complications; I10 Essential (primary) hypertension; G40.909 Epilepsy, unspecified, not intractable, without status epilepticus; E66.01 Morbid (severe) obesity due to excess calories; Z68.43 Body mass index [BMI] 50.0-59.9, adult; Z79.4 Long term (current) use of insulin
CPT/HCPCS: 58558; 82948; 88305; A9270; J1100; J1885; J2250; J2405; J2704; J3010; J7030; J7120

== ENCOUNTER 2021-09-26 10:07 | Emergency (ER) | payer OTHER, SELFPAY ==
--- NOTE | ~2021-09-26 | XR_ITS ---
EXAMINATION: XR abdomen/kub 1V EXAM DATE: 09/26/2021 11:23 INDICATION: Constipation x6 days TECHNIQUE: Frontal projection of the upper abdomen, frontal projection lower abdomen/pelvis for inter pretation. There is no prior study for comparison. FINDINGS: There is moderate amount of colonic stool and gas. No small bowel dilation, nonobstructiv e bowel gas pattern. Possible 3 mm left calyceal stone. There is no organomegaly suspected. The b ones are unremarkable. IMPRESSION: Moderate amount of colonic stool. Possible small left nephrolithiasis. Reviewed, dictated and finalized at location A. IMPRESSION: Moderate amount of colonic stool. Possible small left nephrolithia sis.
[2021-09-26 10:51] VITALS: BP 133/79; PULSE 81; RESP 18; TEMP 36.1; O2SAT 97
--- NOTE | 2021-09-26 11:02 | ED.ABDPAIN ---
HPI - Abdominal Pain General Chief Complaint: Abdominal Pain Stated Complaint: Constipation Time Seen by Provider: 09/26/21 11:02 Source: patient Mode of arrival: ambulatory Limitations: no limitations History of Present Illness HPI narrative: Kaela Salgado is a 41 yo female with an extensive PMH including diabetes, PCOS, adrenal tumor, who [facility] after not have a bowel movement for 6 days she has taken a number of [id number] things including [id number]'s saline enema with limited result. She is feels full and unable to have a bowel movement but she does pass gas. She has great difficulty with controlling her diabetes her blood sugar right now on the DEXA scan is 178 but she usually runs in the 300s they have been trying to switch around her insulin to get better control but she states she has had no major medication change in the last week or 2 Related Data Home Medications Medication Instructions Recorded Confirmed Nortrel (28) 1 tablet PO HS 04/28/21 09/26/21 Ozempic 1 mg SUBCUT WEEKLY 04/28/21 09/26/21 levetiracetam 500 mg PO BID 04/28/21 09/26/21 pioglitazone 20 mg PO HS 04/28/21 09/26/21 Humulin R U-500 (Conc) Kwikpen 40 unit SUBCUT HS 08/10/21 09/26/21 Humulin R U-500 (Conc) Kwikpen 140 unit SUBCUT TIDWM 08/10/21 09/26/21 cholecalciferol (vitamin D3) 125 mcg PO DAILY 08/10/21 09/26/21 [Vitamin D3] Allergies Allergy/AdvReac Type Severity Reaction Status Date / Time peanut oil Allergy Severe Dyspnea / Verified 09/26/21 10:54 SOB azithromycin AdvReac Intermediate gi upset Verified 09/26/21 10:54 Review of Systems Review of Systems: CONSTITUTIONAL: Denies fever, chills, sweats. EYES: Denies visual changes, redness, discharge. ENT: Denies rhinorrhea, congestion, sore throat, otalgia. CARDIOVASCULAR: Denies chest pain, palpitations, edema. RESPIRATORY: Denies dyspnea, wheezing, cough GASTROINTESTINAL: Denies abdominal pain, nausea, vomiting, diarrhea. GENITOURINARY: Denies dysuria, hematuria, abnormal discharge SKIN: Denies rash or itching. NEUROLOGIC: Denies numbness, or focal weakness. PSYCHIATRIC: Denies anxiety or depression. Unable to have bowel movement PMFSH Past Medical History Medical History Adrenal tumor Chronic headaches Diabetes Essential (primary) hypertension PCOS (polycystic ovarian syndrome) Seizure Surgical History Surgical History H/O section H/O dilation and curettage Family History Family History Grandparent Family history of lung cancer Family history of malignant neoplasm of breast Other Cerebrovascular accident Diabetes mellitus Family history of hypercholesterolemia Social History Social History Smoking status: Never smoker Alcohol intake: never Substance use: never Substance use type: does not use Gender identity (if verbalized by the patient): Female Sexual Orientation (if Verbalized by the Patient): Straight or Heterosexual Spiritual care concerns: No Comments At time of signature, I agree with nursing past medical, surgical, social and family history. There is no relevant family history pertinent to the presenting complaint. Exam Narrative: GENERAL: This is a well-nourished, well-developed patient, in moderate distress. Morbidly obese HEAD: normocephalic, atraumatic. EYES: Sclera clear/white. Vision is grossly intact. EARS: External ears normal, Hearing grossly intact. NOSE: External nose normal without nasal discharge, nares without redness, no rhinorrhea. THROAT: Mucous membranes moist, NECK: Neck supple, non-tender CARDIOVASCULAR: Regular rate and rhythm without murmurs, gallops, or rubs. RESPIRATORY: Clear to auscultation. Breath sounds equal bilaterally. No wheezes, rale
== END 2021-09-26 11:40 | disposition home or self-care (01) ==
PROVIDERS: Emergency Provider Nurse Practitioner; PCP Family Medicine
DX: K59.01 Slow transit constipation (principal); E11.9 Type 2 diabetes mellitus without complications; I10 Essential (primary) hypertension; E28.2 Polycystic ovarian syndrome; G40.909 Epilepsy, unspecified, not intractable, without status epilepticus
CPT/HCPCS: 74018; 99213; G0463

== ENCOUNTER 2021-10-16 13:45 | Outpatient (RCR) | payer OTHER, SELFPAY ==
--- NOTE | 2021-09-14 16:18 | OTOPEVAL ---
OCCUPATIONAL THERAPY INITIAL EVALUATION REPORT 09/14/21 Thank you for referring Kaela Salgado to [facility].? The patient is scheduled to be seen for therapy? 0-1x/week for 2-4 weeks. Please review, sign, date and return this plan of care TAYLA. I agree with and certify that the following plan of care is medically necessary. 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) Cardiovascular History Hx Hypercholesterolemia Yes Hx Hypertension Yes Respiratory History Hx Respiratory Disorders No Significant History Gastrointestinal History Hx Gastrointestinal Disorders No Significant History Genitourinary History Hx Genitourinary Disorders No Significant History Musculoskeletal History Hx Back Pain Yes: LOWER Hx Fractures Yes: ARM Hx Orthopedic Surgery Yes: RT CARPAL TUNNEL RELEASE Hematological History Hx Hematological Disorders No Significant History Endocrine History Hx Diabetes Yes HEENT History Hx Sinus Problems Yes Hx Dental Problems Yes: CHIPPED, LOOSE Integumentary History Hx Shingles Yes Reproductive History Hx Abnormal Uterine Bleeding Yes Hx Fibroids Yes Psychosocial History Hx Psychiatric Disorders No Significant History Pain History History of Any Previous or Ongoing No Significant History Instance of Pain Anesthesia History Hx Anesthesia Reactions No Significant History Evaluation Information Problem Diagnosis s/p right carpal tunnel release Onset 08/13/21 Subjective Information Patient reports she has had Query Text:As Reported By Patient/ carpal tunnel symptoms since Family 2005 and she finally got the surgery in Jul. She reports her numbness has resolved, but she reports residual weakness. Prior Level of Function Activity Level (Last 3 Months) Occupation Works in [employer] [facility] [employer] Hand Dominance Right Pain Assessment Timing of Pain Assessment Timing of Pain Assessment Assessment Self Report Self Report Pain Level 0 Pain Score Pain Score 0: Self Report Additional Pain Score Comments Patient reports some intermittent elbow pain, pointing to the medial elbow.
--- NOTE | 2021-10-16 14:44 | OTOPEVAL ---
OCCUPATIONAL THERAPY RE-EVALUATION REPORT AND DISCHARGE SUMMARY 10/16/21 Kaela is a 41 year-old, right handed female that was referred to outpatient hand therapy s/p right carpal tunnel release. Since the start of care her ROM has returned to normal limits and her strength has made excellent progress. The scar tissue in her palm is softening and is no longer hypersensitive. She is currently independent with all materials to continue to work on the scar and to build strength. No further skilled OT indicated at this time. Thank you for referring Kaela Salgado to [facility]. Please review, sign, date and return this plan of care TAYLA. I agree with and certify that the following plan of care is medically necessary. Referring Physician Date Referring Provider: Fredis Hinojosa MD *OT Outpatient Re-Evaluation Start: 09/14/21 15:29 Diagnosis s/p right carpal tunnel release Onset 08/13/21 Subjective Information Patient has participated in 4 Query Text:As Reported By Patient/ weeks of outpatient OT with Family focus on scar tissue management and strengthening. She reports she no longer has a constant pain in her arm and no longer has paresthesias . She reports some residual tightness in the wrist. She reports improvements in strength. Pain Assessment Timing of Pain Assessment Timing of Pain Assessment Re-assessment Self Report Self Report Pain Level 0 Pain Score Pain Score 0: Self Report Additional Pain Score Comments No reports of pain. She just reports tightness . Upper Extremity Range of Motion Wrist Range of Motion Right Wrist Flexion - Active 70 Wrist Extension - Active 75 Finger Range of Motion Right Finger Range of Motion Comments Full fist and hook fist are WNL Thumb Range of Motion Right Thumb Range of Motion Comments Thumb is able to reach the base of digit V. She reports some sensations of tightness at the scar site with this. Hand Meter Record Clerk/Pinch Strength Assessment Hand Left Meter Record Clerk Strength (lbs) 38 Lateral Pinch Strength (lbs) 8 Palmar Pinch Strength (lbs) 5.67 Tip Pinch Strength (lbs) 3.66 Right Meter Record Clerk Strength (lbs) 31.66 Lateral Pinch Strength (lbs) 6.67 Palmar Pinch Strength (lbs) 6 Tip Pinch Strength (lbs) 3.33 Hand Meter Record Clerk/Pinch Strength Comments Measurements from 09/14/21: Meter Record Clerk 13.67 lbs. Lateral 2 lbs. Palmar 0 lbs.
== END 2021-10-16 15:05 | disposition home or self-care (01) ==
LOC: ANHOT 13:45
PROVIDERS: PCP Family Medicine; Visit Provider Plastic Surgery
DX: Z48.89 Encounter for other specified surgical aftercare (principal); M62.81 Muscle weakness (generalized)
CPT/HCPCS: 97018; 97035; 97110; 97140; 97165

== ENCOUNTER 2021-12-28 08:50 | Outpatient (CLI) | payer OTHER, SELFPAY ==
[2021-12-28 09:42] LABS: D Dimer 0.79 ug/mL (<0.48)
== END 2021-12-28 08:51 | disposition home or self-care (01) ==
LOC: ANHLAB 08:53
PROVIDERS: PCP Family Medicine; Visit Provider Emergency Medicine
DX: M79.662 Pain in left lower leg (principal)
CPT/HCPCS: 36415; 85380

== ENCOUNTER 2021-12-28 11:48 | Emergency (ER) | payer OTHER, SELFPAY ==
--- NOTE | ~2021-12-28 | US_ITS ---
EXAMINATION: US venous doppler [facility] DATE: 12/28/2021 12:33 INDICATION: Left calf pain. TECHNIQUE: Grayscale ultrasound images without and with compression and Doppler ultrasound images of the left lower extremity veins were obtained. COMPARISON: None. FINDINGS: The visualized portions of left common femoral vein, profunda (deep) femoral vein, femoral vein, popl iteal vein, peroneal veins, posterior tibial veins, and greater saphenous vein outflow are patent. IMPRESSION: 1. No deep venous thrombosis. Reviewed, dictated and finalized at location A.
--- NOTE | ~2021-12-28 | CT_ITS ---
EXAMINATION: CTA chest PE protocol DATE: 12/28/2021 13:55 INDICATION: Elevated d-dimer TECHNIQUE: Computed tomography angiography (CTA) of the chest was performed with 100 mL Omnipaque-350 intravenous contrast timed to evaluate the pulmonary arteries. Coronal maximum intensity projection 3D-reconstructions were created by the technologist. Automated exposure control and iterative reconst ruction technique were employed. Exam dose: 913.31 mGy-cm total exam DLP. COMPARISON: 11/20/2018 CT pulmonary scan FINDINGS: There is diagnostic contrast enhancement of the pulmonary arteries and no evidence of pulmo nary embolism. No thoracic aortic aneurysm or dissection. No hilar or mediastinal mass lesion or lymphadenopathy. No pulmonary infiltrate or consolidation or pulmonary mass lesion is detected. Normal morphology of t he adrenal glands. Included skeletal structures are unremarkable. IMPRESSION: Negative examination Reviewed, dictated and finalized at Location A. Reviewed, dictated and finalized at location A. IMPRESSION: Negative examination
[2021-12-28 11:52] VITALS: BP 157/86; PULSE 82; RESP 14; TEMP 36.6; O2SAT 98
--- NOTE | 2021-12-28 12:18 | PC.NURSE ---
Pt to ultrasound.
[2021-12-28 12:54] LABS: Basophils Percent Auto 0.3 % (0.2-1.2); Eosinophils Absolute Auto 0.2 K/mm3 (0-0.3); Eosinophils Percent Auto 1.5 % (0-4.4); Immature Granulocyte Absolute 0.05 K/mm3 (0.00-0.031); Immature Granulocyte Percent A 0.4 % (0-0.5); Lymphocytes Absolute Auto 3.78 K/mm3 (0.9-3.2); Lymphocytes Percent Auto 31.9 % (18.3-44.2); Mean Corpuscular HGB Conc 34.1 g/dl (32-36); Mean Corpuscular Hemoglobin 29.3 pg (26-34); Mean Corpuscular Volume 85.8 fl (80-100); Mean Platelet Volume 9.9 fl (7.4-10.4); Monocytes Absolute Auto 0.8 K/mm3 (0.1-0.6); Monocytes Percent Auto 6.5 % (2.6-8.5); Neutrophils Percent Auto 59.4 % (45.5-73.1); Platelet Count Result 317 k/mm3 (150-375); Red Blood Count 4.78 M/mm3 (4.2-5.4); Red Cell Distribution Width 13.7 % (11.5-14.5); White Blood Count 11.9 K/mm3 (4.5-10.0)
[2021-12-28 13:05] LABS: Alanine Aminotransferase 44 U/L (6-35); Albumin Level 3.9 g/dL (3.5-5.1); Alkaline Phosphatase 99 U/L (38-126); Anion Gap 5 mmol/L (8-16); Aspartate Amino Transferase 41 U/L (14-36); Bilirubin,Total 0.2 mg/dL (0.2-1.3); Blood Urea Nitrogen 8 mg/dL (7-17); Calcium 8.6 mg/dL (8.4-10.2); Carbon Dioxide 24 mmol/L (22-30); Chloride 105 mmol/L (98-107); Estimated CRCL calculation 162 ml/min; Estimated Glomerular Filt Rate > 60; Glucose 260 mg/dL (65-110); Sodium 134 mmol/L (137-145)
[2021-12-28 13:20] LABS: Prothrombin Time 13.1 Seconds (11.1-14.7)
[2021-12-28 13:24] LABS: Partial Thromboplastin Time 29.5 SECONDS (22.3-36.8)
--- NOTE | 2021-12-28 14:45 | PC.NURSE ---
Pt updated on test results pt Dr. Salmeron.
--- NOTE | 2021-12-28 14:46 | ED.GENADULT ---
HPI - General Adult General Chief complaint: Recheck/Abnormal Lab/Rx Stated complaint: ABNORMAL LABS Time Seen by Provider: 12/28/21 12:02 Source: RN notes reviewed History of Present Illness HPI narrative: Patient presents emergency department from home for an elevated D-dimer. Patient states she has been having some intermittent tingling and pain in her left calf for the past 2 weeks she states she has no symptoms at this time but did seen a physician yesterday and had a D-dimer ordered as outpatient D-dimer came back elevated she is came to the ER for further evaluation she denies any fevers or chills chest pain shortness of breath abdominal pain nausea vomiting or any other symptoms states that it is isolated to her left posterior calf and does not go anywhere else she is noted no unilateral weakness of the extremities Related Data Home Medications Medication Instructions Recorded Confirmed levetiracetam 250 mg tablet 500 mg PO BID 04/28/21 10/12/21 norethindrone 1 mg-ethinyl 1 tablet PO HS 04/28/21 10/12/21 estradiol 35 mcg tablet (Nortrel) pioglitazone 15 mg tablet 20 mg PO HS 04/28/21 10/12/21 semaglutide 1 mg/dose (4 mg/3 mL) 1 mg subcut WEEKLY 04/28/21 10/12/21 subcutaneous pen injector (Ozempic) cholecalciferol (vitamin D3) 125 125 mcg PO DAILY 08/10/21 10/12/21 mcg (5,000 unit) tablet (Vitamin D3) insulin regular hum U-500 conc 500 40 unit subcut HS 08/10/21 10/12/21 unit/mL(3 mL) subcut pen (Humulin R U-500 (Conc) Insulin Kwikpen) insulin regular hum U-500 conc 500 140 unit subcut TIDWM 08/10/21 10/12/21 unit/mL(3 mL) subcut pen (Humulin R U-500 (Conc) Insulin Kwikpen) Allergies Allergy/AdvReac Type Severity Reaction Status Date / Time peanut oil Allergy Severe Dyspnea / Verified 10/12/21 14:22 SOB azithromycin AdvReac Intermediate gi upset Verified 10/12/21 14:22 Review of Systems Review of Systems: Gen.: Denies fevers or chills ENT: Denies congestion Respiratory: Denies shortness of breath or cough CV: Denies chest pain or palpitations GI: Denies abdominal pain nausea, emesis or diarrhea denies burning, urgency, frequency or hematuria Musculoskeletal: See HPI Neuro: Reports intermittent tingling left posterior calf denies any weakness of the leg Skin: Denies rash Except as documented, all other systems reviewed and negative [facility] Past Medical History Medical History Adrenal tumor Chronic headaches Diabetes Essential (primary) hypertension PCOS (polycystic ovarian syndrome) Seizure Surgical History Surgical History H/O section H/O dilation and curettage Family History Family History Grandparent Family history of lung cancer Family history of malignant neoplasm of breast Other Cerebrovascular accident Diabetes mellitus Family history of hypercholesterolemia Social History Social History Alcohol intake: never Substance use: never Substance use type: does not use Gender identity (if verbalized by the patient): Female Sexual Orientation (if Verbalized by the Patient): Straight or Heterosexual Spiritual care concerns: No Exam Narrative: APPEARANCE: No acute distress, nontoxic, resting in bed EYES: EOMI HEENT: Normocephalic, atraumatic, OMM RESPIRATORY: No respiratory distress Clear to auscultation bilaterally with no rhonchi wheezing or rales. CARDIOVASCULAR: Regular rate and rhythm without murmurs rubs or gallops. ABDOMINAL: Soft, nontender, nondistended, no rebound or guarding MUSCULOSKELETAl: Moves all extremities. No clubbing, cyanosis or edema. Left calf tenderness, left dorsalis pedis 2+ left lower extremity neurovascular intact full range of motion of left knee and ankle without pain Back: No midline thoracic lisette
[2021-12-28 15:05] VITALS: BP 141/70; RESP 14
== END 2021-12-28 15:06 | disposition home or self-care (01) ==
PROVIDERS: Emergency Provider Emergency Medicine; PCP Emergency Medicine
DX: R20.2 Paresthesia of skin (principal); M79.662 Pain in left lower leg; E11.9 Type 2 diabetes mellitus without complications; Z79.4 Long term (current) use of insulin; I10 Essential (primary) hypertension; E28.2 Polycystic ovarian syndrome
CPT/HCPCS: 36415; 71275; 80053; 85025; 85380; 85610; 85730; 93971; 99284; Q9967

== ENCOUNTER 2022-03-17 08:43 | Outpatient (CLI) | payer OTHER, SELFPAY ==
--- NOTE | ~2022-03-17 | XR_ITS ---
EXAMINATION: XR tibia fibula LT 2V DATE: 03/17/2022 09:13 INDICATION: Left leg pain. TECHNIQUE: 2 views of left tibia and fibula were obtained. COMPARISON: None. FINDINGS: Bone alignment is normal. No fracture. Joint spaces are well maintained. IMPRESSION: 1. Normal left tibia and fibula. Reviewed, dictated and finalized at location A.
--- NOTE | ~2022-03-17 | XR_ITS ---
EXAMINATION: XR knee LT min 4V DATE: 03/17/2022 09:14 INDICATION: Left leg pain. TECHNIQUE: 3 weightbearing views of left knee were obtained. COMPARISON: None. FINDINGS: Bone alignment is normal. No fracture. There is mild osteoarthritis of patellofemoral charu rtment characterized by a tiny marginal osteophyte. No knee joint effusion. IMPRESSION: 1. Mild left knee osteoarthritis. Reviewed, dictated and finalized at location A.
[2022-03-17 09:05] LABS: Basophils Percent Auto 0.4 % (0.2-1.2); Eosinophils Absolute Auto 0.2 K/mm3 (0-0.3); Eosinophils Percent Auto 2.1 % (0-4.4); Hematocrit 40.5 % (37.0-47.0); Hemoglobin 13.3 g/dL (12.0-15.0); Immature Granulocyte Absolute 0.04 K/mm3 (0.00-0.031); Immature Granulocyte Percent A 0.4 % (0-0.5); Lymphocytes Absolute Auto 3.09 K/mm3 (0.9-3.2); Lymphocytes Percent Auto 27.9 % (18.3-44.2); Mean Corpuscular HGB Conc 32.8 g/dl (32-36); Mean Corpuscular Hemoglobin 29.2 pg (26-34); Mean Platelet Volume 9.5 fl (7.4-10.4); Monocytes Absolute Auto 0.7 K/mm3 (0.1-0.6); Neutrophils Percent Auto 63.2 % (45.5-73.1); Platelet Count Result 294 k/mm3 (150-375); Red Blood Count 4.55 M/mm3 (4.2-5.4); Red Cell Distribution Width 13.6 % (11.5-14.5); White Blood Count 11.1 K/mm3 (4.5-10.0)
== END 2022-03-17 08:44 | disposition home or self-care (01) ==
PROVIDERS: PCP Emergency Medicine; Visit Provider Emergency Medicine
DX: M17.12 Unilateral primary osteoarthritis, left knee (principal); D72.829 Elevated white blood cell count, unspecified
CPT/HCPCS: 36415; 73564; 73590; 85025

== ENCOUNTER 2022-05-03 06:35 | Outpatient (CLI) | payer OTHER, SELFPAY ==
--- NOTE | 2022-05-05 09:19 | WPDNEUROLOGY ---
Neurology EEG Report General Information Date of Study: 05/03/22 TEST eeg DIAGNOSIS epilepsy CONDITION OF RECORDING awake,drowsy and sleep. EEG NUMBER [id number] CLINICAL HISTORY patient reports she started having seizures about 3 years ago though seems to be well controlled.
--- NOTE | 2022-05-05 09:27 | WPDNEUROLOGY ---
Neurology EEG Report General Information Date of Study: 05/03/22 TEST EEG DIAGNOSIS epilepsy CONDITION OF RECORDING awake drowsy and sleep EEG NUMBER [id number] CLINICAL HISTORY patient reports she started having seizures about 3 years ago. Seem to be well controlled EEG DESCRIPTION basic resting occipital frequency consists of 9 to 11 hertz per 2nd low to medium voltage alpha admixed with low-voltage 15 to 18 hertz per 2nd beta. During drowsiness low-voltage beta activity seen diffusely with waxing and waning posterior alpha rhythm. Bilateral symmetrical sleep activity seen during sleep photic stimulation produced normal drive. Hyperventilation not done. Non paroxysmal. Nonfocal. Nonlateralizing. IMPRESSION Normal record
== END 2022-05-03 06:36 | disposition home or self-care (01) ==
LOC: ANHNEURO 06:36
PROVIDERS: PCP Emergency Medicine; Visit Provider Psychiatry & Neurology Neurology
DX: G40.909 Epilepsy, unspecified, not intractable, without status epilepticus (principal)
CPT/HCPCS: 95816

== ENCOUNTER 2022-06-16 09:34 | Outpatient (CLI) | payer OTHER, SELFPAY ==
--- NOTE | 2022-06-16 11:00 | NEURO_ITS ---
Impression: # Complains of left lower extremity pain. # Normal nerve conduction study including motor and sensory nerves. # Normal needle/EMG exam. # Clinical correlation recommended. Motor Nerve Conduction Lower Extremities Peroneal Nerve Conduction Velocity (m/sec) Terminal Latency (msec) Response Voltage(mV) Popliteal space-Ankle Ankle Extensor Dig Brevis Popliteal space Ankle Right Left 47 5.0 2 2 Tibial Nerve Conduction Velocity (m/sec) Terminal Latency (msec) Response Voltage(mV) Popliteal space-Ankle Ankle-Extensor Dig Brevis Popliteal space Ankle Right Left 46 4.8 2 2 F-waves Peroneal Nerve (ms) Tibial Nerve (ms) Right Left 51.0 52.8 Sensory Nerve Conduction Lower Extremities Sural Nerve Stimulation Terminal Latency (msec) Ankle Response Voltage (uV) Ankle Response Velocity (m/sec) Right Left 3.8 13 42 Superficial Peroneal Nerve Stimulation Terminal Latency (msec) Ankle Response Voltage (uV) Ankle Response Velocity (m/sec) Right Left 3.1 13 52 Left Right Muscles Examined Fibrillation Fasciculation Scarcity Voltage Duration Left Right Left Right Left Right Left Right Left Right X Ant Tibialis X Gastroc X Fibularis Long X Flex Dig Long X Ext Dig Brev Abd Hallucis Quadriceps Paraspinals MTDD
== END 2022-06-16 09:35 | disposition home or self-care (01) ==
LOC: ANHNEURO 09:35
PROVIDERS: PCP Emergency Medicine; Visit Provider Emergency Medicine
DX: M79.662 Pain in left lower leg (principal)
CPT/HCPCS: 95886; 95908

== ENCOUNTER → 2022-12-03 08:50 | Outpatient (CLI) | payer OTHER, SELFPAY ==
--- NOTE | ~2022-12-03 | XR_ITS ---
EXAM: [id number] DATE: 12/03/2022 09:09 HISTORY: M79.672 - Pain in left foot WHILE STANDING AT [employer] . COMPARISON: None available. FINDINGS: Normal mineralization. No fracture or dislocation. No lytic or blastic lesion. Mild planta r enthesopathy. Mild degenerative change at the first MTP joint. No erosion or periosteal change. Sof t tissues within normal limits. IMPRESSION: Mild first MTP osteoarthritis. Mild plantar enthesopathy. Reviewed, dictated and finalized at location K.
== END ==
PROVIDERS: PCP Nurse Practitioner Family; Visit Provider Nurse Practitioner Family
DX: M19.072 Primary osteoarthritis, left ankle and foot (principal)
CPT/HCPCS: 73630

== ENCOUNTER 2023-01-17 08:45 | Outpatient (RCR) | payer OTHER, SELFPAY ==
--- NOTE | 2022-12-30 16:00 | OPREHPOC ---
Outpatient Therapy Plan of Care This is a Multidisciplinary Plan of Care that may contain components documented by all disciplines (PT, OT, and ST.) PT Problem 1 PT Problem #1 Knowledge Deficit PT Goal 1 Goal Independent with HEP Target Visit 6 PT Problem 2 PT Problem #2 Impaired Range of Motion PT Goal 1 Goal Increase L dorsiflexion to at least 8 degrees active range of motion Increase L eversion to 20 degrees active range of motion. Target Visit 6 PT Problem 3 PT Problem #3 Impaired Flexibility PT Goal 1 Goal Decrease ALYSON calfs to mild tightness to allow for improved Dorsiflexion ALYSON feet. Target Visit 6 PT Problem 4 PT Problem #4 Pain PT Goal 1 Goal decrease pain to no more than 3/10 at work or after working. Target Visit 6
--- NOTE | 2022-12-30 16:19 | PTOPEVAL1 ---
Assessment and note entered by Oj Corral, PT Evaluation Information Assessment Status Evaluation Diagnosis Pain in L foot Subjective Information Patient reporting having pain in the L foot similar to the pain she has had in her R foot. Patient went to her doctor to try to get a vacuum filter operator referral, but she reports her insurance is not accepted by any of the podiatrists around here. Patient has been trying to do the exercises she used on her R foot, but they do not appear to be working as well. Patient would like a walking boot. Reported Pain Level Pain Score 3: Self Report Assessment PT Clinical Summary Kaela is a 42 year old female coming into the clinic with a diagnosis of L foot pain. The patient has decreased range of motion with dorsiflexion and tightness in the calfs and plantar fascia. Physical therapy will work on stretching, strengthening, and manual therapy as needed for pain control and to improve flexibility . Patient is wanting a walking boot, which may take stress off the foot and allow for decreased pain, but MD would need to write an order for it. Plan of Care Interventions Electrical Stimulation,Gait Training,Hot Pack/Cold Pack,Manual Therapy,Neuro Re-education,Patient/ Caregiver Education,Therapeutic Activities, Therapeutic Exercise,Ultrasound Other Interventions cupping, taping, IASTM PT Services Indicated Yes Treatment Frequency and 1-2x/wk for 4 weeks Duration These treatments will address the objective and functional deficits as defined above. The patient will be advanced safely and appropriately in order for the patient to progress towards his/her prior level of function. Additional exercises will be introduced and as well as a comprehensive home exercise program upon discharge, if needed, ?to ensure carryover of functional gains achieved in the clinic. This treatment plan has been reviewed and agreement upon by the patient.
--- NOTE | 2023-01-03 09:39 | PCPTNOTE ---
Pt. canceled 01/03/23 appointment as she had to work.
--- NOTE | 2023-01-10 09:23 | PCPTNOTE ---
Patient did not show up for scheduled appointment this date; called and left voicemail for reminder on next appointment January 14 @ 9am.
--- NOTE | 2023-01-14 09:36 | PCPTNOTE ---
Pt. did not show for 01/14/23 appointment and did not answer when calling to check on it.
--- NOTE | 2023-01-21 16:28 | PCPTNOTE ---
Pt. did not show for 01/21/23 appointment.
--- NOTE | 2023-02-01 09:43 | PCPTNOTE ---
Admitting Provider: Attending Provider: Jayleen Tolliver NP Patient:Kaela Salgado Date of :1980 Patient has not returned for any further treatments since 01/17/2023, therefore she will be discharged at this time. Patient?s initial visit was on 12/29/2022 08:00 and she had a total of ___3 visits with 1 cancelation and 4 no shows. The goals have been not met. Thank you for referring this patient to [facility]. Please review, sign, date and return this discharge summary TAYLA. I have been updated about the patient's current status and I agree with discharge from the above service at this time. Referring Physician Date
--- NOTE | 2023-02-01 10:01 | PCPTNOTE ---
Patient did not show up for scheduled appointment this date, called patient and left voicemail secondary to 4 no shows patient being discharged from skilled physical therapy at this time.
== END 2023-02-01 12:11 | disposition home or self-care (01) ==
LOC: ANHPT 08:45
PROVIDERS: PCP Nurse Practitioner Family; Visit Provider Nurse Practitioner Family
DX: M79.672 Pain in left foot (principal)
CPT/HCPCS: 97110; 97140; 97161; 99199

== ENCOUNTER 2023-01-30 07:54 | Emergency (ER) | payer OTHER, SELFPAY ==
--- NOTE | ~2023-01-30 | US_ITS ---
EXAMINATION: US pelvic complete w TV DATE: 01/30/2023 09:49 INDICATION: Pelvic pain TECHNIQUE: Multiple transabdominal and endovaginal sonographic images of the pelvis were obtained. COMPARISON: None. FINDINGS: The uterus measures 7.5 x 3.3 x 4.6 cm. The endometrial complex measures 2 mm. The right ov shai measures 1.8 x 3.1 x 1.8 cm. The left ovary measures 1.0 x 2.6 x 1.9 cm simple cyst of the left o vary measure up to 2.2 cm. There are nabothian cysts of the cervix.. There is normal vascular flow in the ovaries. There is no free fluid in the pelvis. IMPRESSION: 1. No sonographic correlate for the patient's symptoms. Reviewed, dictated and finalized at location A.
--- NOTE | ~2023-01-30 | CT_ITS ---
EXAMINATION: CT abdomen pelvis w con INDICATION: Suprapubic abdominal pain TECHNIQUE: Computed tomographic images of the abdomen and pelvis were obtained after the administrati on of 100 cc of Omnipaque 350 intravenous contrast. The dose-length product (DLP) was 1551.88 mGy-cm. Automated exposure control and iterative reconstruction technique were employed. COMPARISON: 05/11/2021 FINDINGS: Minimal dependent atelectasis is present in the lung bases. The heart size is normal. A chr onic 10 mm low-attenuation lesion of the left hepatic lobe is not significantly changed since the com parison examination. The spleen, pancreas, gallbladder, and left adrenal gland are normal. There is a chronic 1.4 cm adenoma of the right adrenal gland. Nonobstructing stones of the right kidney measure up to 2 mm. Simple cysts of the kidneys measure up to 1.4 cm on the left. There is a chronic 3 cm he morrhagic cyst of the left kidney. No pathologically enlarged abdominal or pelvic lymph nodes are jasmina ntified. The appendix is normal. No free intraperitoneal gas or evidence of bowel obstruction. There is wall thickening of the urinary bladder. IMPRESSION: 1. Wall thickening of the urinary bladder, consistent with cystitis. 2. Nonobstructing right nephrolithiasis. Reviewed, dictated and finalized at location A.
[2023-01-30 08:03] VITALS: BP 155/94; PULSE 89; RESP 20; TEMP 35.7; O2SAT 100
[2023-01-30 08:19] LABS: Basophils Absolute Auto 0.1 K/mm3 (0.0-0.1); Basophils Percent Auto 0.3 % (0.2-1.2); Eosinophils Absolute Auto 0.2 K/mm3 (0-0.3); Eosinophils Percent Auto 1.4 % (0-4.4); Hematocrit 43.4 % (37.0-47.0); Hemoglobin 14.2 g/dL (12.0-15.0); Immature Granulocyte Absolute 0.05 K/mm3 (0.00-0.031); Immature Granulocyte Percent A 0.3 % (0-0.5); Lymphocytes Absolute Auto 3.68 K/mm3 (0.9-3.2); Lymphocytes Percent Auto 24.1 % (18.3-44.2); Mean Corpuscular HGB Conc 32.7 g/dl (32-36); Mean Corpuscular Volume 88.6 fl (80-100); Mean Platelet Volume 9.6 fl (7.4-10.4); Monocytes Absolute Auto 0.8 K/mm3 (0.1-0.6); Monocytes Percent Auto 5.5 % (2.6-8.5); Neutrophils Absolute Auto 10.5 K/mm3 (1.3-6.7); Neutrophils Percent Auto 68.4 % (45.5-73.1); Platelet Count Result 356 k/mm3 (150-375); Red Cell Distribution Width 13.8 % (11.5-14.5); White Blood Count 15.3 K/mm3 (4.5-10.0)
[2023-01-30 08:28] LABS: Appearance Urine Cloudy (Clear); Bilirubin Urine 1+ (Negative); Blood Urine 3+ (Negative); Color Urine Red (Yellow); Glucose Urine UA Negative (Negative); Ketones Urine Trace mg/dL (Negative); Leukocyte Esterase Ur Trace LEU/UL (Negative); Nitrate Urine Negative (Negative); Protein Urine 3+ mg/dL (Negative); Specific Grav Ur 1.025 (1.001-1.035); pH Urine 6.5 (5.0-9.0)
[2023-01-30 08:29] LABS: Bacteria Urine None seen /hpf; RBC Urine >75 /hpf (0-2); Squamous Epithelial Cell Urine Few /hpf (Few)
[2023-01-30 08:31] LABS: Alanine Aminotransferase 50 U/L (6-35); Albumin Level 4.4 g/dL (3.5-5.1); Alkaline Phosphatase 116 U/L (38-126); Anion Gap 7 mmol/L (8-16); Aspartate Amino Transferase 38 U/L (14-36); Bilirubin,Total 0.4 mg/dL (0.2-1.3); Blood Urea Nitrogen 11 mg/dL (7-17); Calcium 9.3 mg/dL (8.4-10.2); Carbon Dioxide 29 mmol/L (22-30); Chloride 103 mmol/L (98-107); Estimated CRCL calculation 119 ml/min; Estimated Glomerular Filt Rate > 60; Glucose 122 mg/dL (65-110); Potassium 3.9 mmol/L (3.4-5.0); Sodium 139 mmol/L (137-145)
[2023-01-30 08:31] LABS: Add Urine Microscopic? YES
[2023-01-30] MEDS: ONDANSETRON INJ 4 MG/2 ML VIAL IV PUSH (08:38)
[2023-01-30] MEDS: SODIUM CHLORIDE 0.9% IV 1,000 ML 999 ML IV CONT (08:38)
[2023-01-30] MEDS: HYDROmorphone HCL INJ (*CRX) 1 MG/ML SYR 0.5 MG IV PUSH (08:39)
--- NOTE | 2023-01-30 09:16 | ED.FEMALEGU ---
HPI - Female Genitourinary General Chief complaint: Urogenital-Female Stated complaint: kiidney stone/ kidney infection History of Present Illness HPI Narrative: This is a 42-year-old female, with past history of PCOS and diabetes, who presents to the emergency department with significant suprapubic pelvic pain and dysuria with hematuria. The patient states she noticed dysuria beginning last night, though approximately 3 hours prior to arrival began having severe suprapubic pain, described as pressure-like and intermittently sharp. The pain is constant not aggravated or alleviated by any known factors. This is associated with nausea, vomiting and cold sweats. She states her pain is similar to previous episodes of UTI, though worse. Related Data Home Medications Medication Instructions Recorded Confirmed norethindrone 1 mg-ethinyl 1 tablet PO HS 04/28/21 12/03/22 estradiol 35 mcg tablet (Nortrel) pioglitazone 15 mg tablet 20 mg PO HS 04/28/21 12/03/22 cholecalciferol (vitamin D3) 125 125 mcg PO DAILY 08/10/21 12/03/22 mcg (5,000 unit) tablet (Vitamin D3) insulin regular hum U-500 conc 500 40 unit subcut HS 08/10/21 12/03/22 unit/mL(3 mL) subcut pen (Humulin R U-500 (Conc) Insulin Kwikpen) insulin regular hum U-500 conc 500 140 unit subcut TIDWM 08/10/21 12/03/22 unit/mL(3 mL) subcut pen (Humulin R U-500 (Conc) Insulin Kwikpen) atorvastatin 80 mg tablet 80 mg PO DAILY 09/17/22 12/03/22 blood-glucose transmitter (Dexcom 09/17/22 12/03/22 G6 Transmitter device) oxybutynin chloride 10 mg 10 mg PO DAILY 09/17/22 12/03/22 tablet,extended release 24 hr pioglitazone 30 mg tablet 30 mg PO DAILY 09/17/22 12/03/22 Allergies Allergy/AdvReac Type Severity Reaction Status Date / Time peanut oil Allergy Severe Dyspnea / Verified 01/30/23 08:10 SOB azithromycin AdvReac Intermediate gi upset Verified 01/30/23 08:10 Review of Systems Review of Systems: CONSTITUTIONAL: Sweats denies fever, chills, CARDIOVASCULAR: Denies chest pain, palpitations, or edema. RESPIRATORY: Denies cough or dyspnea. GASTROINTESTINAL: Suprapubic abdominal pain and nausea denies or diarrhea. GENITOURINARY: Dysuria and hematuria SKIN: Denies rash or itching. MUSCULOSKELETAL: Denies back pain, joint pain, or myalgia. NEUROLOGIC: Denies headache, numbness, dizziness, or weakness. PSYCHIATRIC: Denies anxiety or depression. PMFSH Past Medical History Medical History Adrenal tumor Allergies Anxiety Chronic headaches Diabetes Essential (primary) hypertension Foot pain, left PCOS (polycystic ovarian syndrome) Screening for tuberculosis Seizure Surgical History Surgical History H/O section H/O dilation and curettage History of carpal tunnel surgery History of facial surgery Family History Family History Grandparent Family history of lung cancer Family history of malignant neoplasm of breast Other Cerebrovascular accident Diabetes mellitus Family history of hypercholesterolemia Social History Social History Smoking status: Never smoker Alcohol intake: never Substance use: never Substance use type: does not use Lack of Transportation: No Lack of Food: Never True Current Housing: I Have Housing Concerned About Future Housing: No Difficulty Paying Gas/Electric Bills: No Difficulty Paying for Meds: No Currently Unemployed: No Education: Associate Degree Difficulty w/ Childcare or Family Care: No Living arrangements: with family Gender identity (if verbalized by the patient): Female Sexual Orientation (if Verbalized by the Patient): Straight or Heterosexual Spiritual care concerns: No Exam Narrative: GENERAL: Well-developed, well-nourished,
[2023-01-30 10:00] VITALS: BP 135/67; PULSE 77; RESP 18; O2SAT 97
[2023-01-30] MEDS: KETOROLAC 30 MG/ML VIAL (*BKC) IV PUSH (12:17)
[2023-01-30 12:35] VITALS: BP 130/80; PULSE 84; RESP 18; O2SAT 99
== END 2023-01-30 12:45 | disposition home or self-care (01) ==
PROVIDERS: Emergency Provider Preventive Medicine Aerospace Medicine; PCP Nurse Practitioner Family
DX: N30.01 Acute cystitis with hematuria (principal); R10.2 Pelvic and perineal pain; E11.9 Type 2 diabetes mellitus without complications; I10 Essential (primary) hypertension; E28.2 Polycystic ovarian syndrome; Z79.4 Long term (current) use of insulin
CPT/HCPCS: 36415; 74177; 76830; 76856; 80053; 81001; 81025; 85025; 87086; 87088; 96361; 96374; 96375; 99284; J1170; J1885; J2405; J7030; Q9967

== ENCOUNTER 2023-06-03 10:38 | Outpatient (CLI) | payer OTHER, SELFPAY ==
--- NOTE | 2023-06-03 | ECG_ITS ---
Measurements Intervals [place] Rate: 74 P: 59 FL: 153 QRS: 2 QRSD: 107 T: 14 QT: 365 QTc: 406 Interpretive Statements SINUS RHYTHM WITHIN NORMAL LIMITS NO PREVIOUS ECG AVAILABLE FOR COMPARISON Electronically Signed On 06-03-2023 14:13:10 IC [employer] by Bautista Esquivel M.D.
[2023-06-03 11:58] LABS: Anion Gap 8 mmol/L (8-16); Blood Urea Nitrogen 10 mg/dL (7-17); Calcium 8.9 mg/dL (8.4-10.2); Carbon Dioxide 26 mmol/L (22-30); Chloride 104 mmol/L (98-107); Estimated Glomerular Filt Rate > 60; Glucose 90 mg/dL (65-110); Potassium 3.9 mmol/L (3.4-5.0); Sodium 138 mmol/L (137-145)
== END 2023-06-03 10:39 | disposition home or self-care (01) ==
PROVIDERS: PCP Nurse Practitioner Family
DX: Z01.818 Encounter for other preprocedural examination (principal)
CPT/HCPCS: 36415; 80048; 93005

== ENCOUNTER 2023-07-19 18:07 | Emergency (ER) | payer OTHER, SELFPAY ==
[2023-07-19 18:10] VITALS: BP 143/81; PULSE 67; RESP 16; TEMP 36.6; O2SAT 100
--- NOTE | 2023-07-19 21:53 | ECG_ITS ---
Measurements Intervals [place] Rate: 59 P: 24 TX: 168 QRS: 4 QRSD: 96 T: 15 QT: 381 QTc: 379 Interpretive Statements SINUS BRADYCARDIA CANNOT RULE OUT SEPTAL INFARCT, AGE INDETERMINATE BASELINE ARTIFACT- II, III, AVR, AVF ABNORMAL ECG COMPARED TO ECG 06/03/2023 11:22:29 SINUS BRADYCARDIA NOW PRESENT Electronically Signed On 07-20-2023 5:59:32 BONE DRIER by Abelardo Tejada D.O.
[2023-07-19 21:54] VITALS: PULSE 67
[2023-07-19 21:56] VITALS: BP 141/73; PULSE 79; RESP 14; TEMP 37.1; O2SAT 100
[2023-07-19 22:11] LABS: Basophils Percent Auto 0.3 % (0.2-1.2); Eosinophils Absolute Auto 0.1 K/mm3 (0-0.3); Hematocrit 42.2 % (37.0-47.0); Hemoglobin 13.8 g/dL (12.0-15.0); Immature Granulocyte Absolute 0.03 K/mm3 (0.00-0.031); Immature Granulocyte Percent A 0.3 % (0-0.5); Lymphocytes Absolute Auto 4.31 K/mm3 (0.9-3.2); Lymphocytes Percent Auto 36.3 % (18.3-44.2); Mean Corpuscular HGB Conc 32.7 g/dl (32-36); Mean Corpuscular Hemoglobin 28.8 pg (26-34); Mean Corpuscular Volume 88.1 fl (80-100); Mean Platelet Volume 10.1 fl (7.4-10.4); Monocytes Absolute Auto 0.7 K/mm3 (0.1-0.6); Monocytes Percent Auto 6.1 % (2.6-8.5); Neutrophils Absolute Auto 6.7 K/mm3 (1.3-6.7); Platelet Count Result 287 k/mm3 (150-375); Red Blood Count 4.79 M/mm3 (4.2-5.4); Red Cell Distribution Width 14.3 % (11.5-14.5); White Blood Count 11.9 K/mm3 (4.5-10.0)
[2023-07-19 22:26] LABS: Appearance Urine Clear (Clear); Bacteria Urine None Seen /hpf; Bilirubin Urine Negative (Negative); Blood Urine Negative (Negative); Color Urine Yellow (Yellow); Glucose Urine UA Negative (Negative); Ketones Urine 1+ mg/dL (Negative); Leukocyte Esterase Ur Trace LEU/UL (Negative); Nitrate Urine Negative (Negative); Non Pathogenic Casts 0-2; Protein Urine Negative (Negative); RBC Urine 0-2 /hpf (0-2); Specific Grav Ur 1.025 (1.001-1.035); Squamous Epithelial Cell Urine Occasional /hpf (Few); pH Urine 6.5 (5.0-9.0)
[2023-07-19] MEDS: SCOPOLAMINE 1 MG PATCH 1 PATCH TRANSDERM (22:26)
[2023-07-19] MEDS: MECLIZINE HCL 25 MG TABLET PO (22:27)
[2023-07-19 22:32] LABS: Add Urine Microscopic? YES
[2023-07-19 22:34] LABS: Alanine Aminotransferase 30 U/L (6-35); Alkaline Phosphatase 95 U/L (38-126); Anion Gap 9 mmol/L (8-16); Aspartate Amino Transferase 28 U/L (14-36); Bilirubin,Total 0.5 mg/dL (0.2-1.3); Blood Urea Nitrogen 12 mg/dL (7-17); Calcium 9.5 mg/dL (8.4-10.2); Carbon Dioxide 26 mmol/L (22-30); Chloride 104 mmol/L (98-107); Estimated CRCL calculation 101 ml/min; Estimated Glomerular Filt Rate > 60; Glucose 91 mg/dL (65-110); Potassium 3.8 mmol/L (3.4-5.0); Sodium 139 mmol/L (137-145)
--- NOTE | 2023-07-19 23:58 | ED.GENADULT ---
HPI - General Adult General Chief complaint: Dizziness Stated complaint: dizzy with ambulation Time Seen by Provider: 07/19/23 22:09 History of Present Illness HPI narrative: this is a 42-year-old female presenting ED with a chief complaint of vertigo. 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 It then resolved but she was having intermittent episodes throughout the day. By time she arrived to the emergency department she is asymptomatic. We are no longer able to trigger the vertigo. Patient is denying any double vision dysarthria dysphagia or loss of coordination. No neurologic deficits. She has never had vertigo in the past Related Data Home Medications Medication Instructions Recorded Confirmed norethindrone 1 mg-ethinyl 1 tablet PO HS 04/28/21 06/24/23 estradiol 35 mcg tablet (Nortrel) cholecalciferol (vitamin D3) 125 125 mcg PO DAILY 08/10/21 06/24/23 mcg (5,000 unit) tablet (Vitamin D3) atorvastatin 80 mg tablet 80 mg PO DAILY 09/17/22 06/24/23 blood-glucose transmitter (Dexcom 09/17/22 06/24/23 G6 Transmitter device) oxybutynin chloride 10 mg 10 mg PO DAILY 09/17/22 06/24/23 tablet,extended release 24 hr pioglitazone 30 mg tablet 30 mg PO DAILY 09/17/22 06/24/23 insulin lispro 200 unit/mL (3 mL) 20 unit subcut DAILY 03/25/23 06/24/23 subcutaneous pen (Humalog KwikPen U-200 Insulin) tirzepatide [Mounjaro] subcut 06/24/23 06/24/23 Allergies Allergy/AdvReac Type Severity Reaction Status Date / Time peanut oil Allergy Severe Dyspnea / Verified 06/24/23 09:20 SOB azithromycin AdvReac Intermediate gi upset Verified 06/24/23 09:20 PMFSH Past Medical History Medical History Adrenal tumor Allergies Anxiety Chronic headaches Diabetes Essential (primary) hypertension Foot pain, left Pain in tooth PCOS (polycystic ovarian syndrome) Plantar fasciitis of left foot Screening for tuberculosis Seizure Surgical History Surgical History H/O section H/O dilation and curettage History of carpal tunnel surgery History of facial surgery Family History Family History Grandparent Family history of lung cancer Family history of malignant neoplasm of breast Other Cerebrovascular accident Diabetes mellitus Family history of hypercholesterolemia Social History Social History Smoking status: Never smoker Alcohol intake: never Substance use: never Substance use type: does not use Lack of Transportation: No Lack of Food: Never True Current Housing: I Have Housing Concerned About Future Housing: No Difficulty Paying Gas/Electric Bills: No Difficulty Paying for Meds: No Currently Unemployed: No Education: Associate Degree Difficulty w/ Childcare or Family Care: No Living arrangements: with family Gender identity (if verbalized by the patient): Female Sexual Orientation (if Verbalized by the Patient): Straight or Heterosexual Spiritual care concerns: No Exam Narrative: APPEARANCE: No apparent distress. Head: TMs normal EYES: EOMI, NOSE: Atraumatic NECK: Trachea midline RESPIRATORY: No increased rate of breathing CARDIOVASCULAR: RRR, ABDOMINAL: Non-distended MUSCULOSKELETAl: No obvious deformities NEURO: Alert. Cranial nerves 2-12 grossly intact. Sensation light touch, motor function cerebellar function intact for 4 extremities. Gait exam was normal. I was unable to elicit any vertigo with multiple repositioning techniques SKIN:: Warm, dry. Normal color PSYCHIATRIC: Normal affect Course Vital Signs Vital signs: Vital Signs Temperature 97.9 F 07/19/23 18:10 Pulse Rate 67 07/19/23 18:10 Respiratory Rate 16 07/19/23 18:10
[2023-07-20 00:11] VITALS: BP 126/75; PULSE 65; RESP 18; O2SAT 100
== END 2023-07-20 00:12 | disposition home or self-care (01) ==
PROVIDERS: Emergency Provider Emergency Medicine; PCP Nurse Practitioner Family
DX: R42 Dizziness and giddiness (principal); E11.9 Type 2 diabetes mellitus without complications; Z79.4 Long term (current) use of insulin; I10 Essential (primary) hypertension
CPT/HCPCS: 36415; 80053; 81001; 81025; 85025; 87086; 93005; 99284; A9270

== ENCOUNTER 2023-11-24 14:19 | Emergency (ER) | payer OTHER, SELFPAY ==
[2023-11-24 14:20] VITALS: BP 123/93; PULSE 105; RESP 16; TEMP 36.6; O2SAT 100
--- NOTE | 2023-11-24 14:22 | ED.DIZZY ---
HPI - Dizziness General Chief Complaint: Dizziness Stated Complaint: dizzy, fall in shower Time Seen by Provider: 11/24/23 14:19 History of Present Illness HPI Narrative: Pt was taking a shower and felt lightheaded like she was going to pass out. Pt turned off shower and got out and sat down. 911 called and on 1st responder arrival her BP was 150's/110's. Now BP normal. Pt denies CP or plapitations or ANGELES. Pt feels fine now. Related Data Home Medications Medication Instructions Recorded Confirmed norethindrone 1 mg-ethinyl 1 tablet PO HS 04/28/21 09/09/23 estradiol 35 mcg tablet (Nortrel) cholecalciferol (vitamin D3) 125 125 mcg PO DAILY 08/10/21 09/09/23 mcg (5,000 unit) tablet (Vitamin D3) atorvastatin 80 mg tablet 80 mg PO DAILY 09/17/22 09/09/23 blood-glucose transmitter (Dexcom 09/17/22 09/09/23 G6 Transmitter device) oxybutynin chloride 10 mg 10 mg PO DAILY 09/17/22 09/09/23 tablet,extended release 24 hr insulin lispro 200 unit/mL (3 mL) 20 unit subcut DAILY 03/25/23 09/09/23 subcutaneous pen (Humalog KwikPen U-200 Insulin) tirzepatide [Mounjaro] subcut 06/24/23 09/09/23 Allergies Allergy/AdvReac Type Severity Reaction Status Date / Time peanut oil Allergy Severe Dyspnea / Verified 09/09/23 08:10 SOB azithromycin AdvReac Intermediate gi upset Verified 09/09/23 08:10 Review of Systems Review of Systems: All systems reviewed & are unremarkable except as noted in HPI and below [facility] Past Medical History Medical History (Updated 11/24/23 @ 15:51 by Stephany Newberry III, DO) Adrenal tumor Allergies Anxiety Chronic headaches Diabetes Essential (primary) hypertension Foot pain, left Hyperlipidemia Pain in tooth PCOS (polycystic ovarian syndrome) Plantar fasciitis of left foot Screening for tuberculosis Seizure Surgical History Surgical History H/O section H/O dilation and curettage History of carpal tunnel surgery History of facial surgery Family History Family History Grandparent Family history of lung cancer Family history of malignant neoplasm of breast Other Cerebrovascular accident Diabetes mellitus Family history of hypercholesterolemia Social History Social History Smoking status: Never smoker Alcohol intake: never Substance use: never Substance use type: does not use Lack of Transportation: No Lack of Food: Never True Current Housing: I Have Housing Concerned About Future Housing: No Difficulty Paying Gas/Electric Bills: No Difficulty Paying for Meds: No Currently Unemployed: No Education: Associate Degree Difficulty w/ Childcare or Family Care: No Living arrangements: with family Gender identity (if verbalized by the patient): Female Sexual Orientation (if Verbalized by the Patient): Straight or Heterosexual Spiritual care concerns: No Exam Const: General: healthy appearing and no acute distress Nutritional Appearance: well nourished Orientation/consciousness: patient oriented x3 Limitations: no limitations Eyes: Conjunctivae: conjunctivae normal EOM: EOMs intact bilaterally Neck: Neck: normal visual inspection and no lymphadenopathy Resp: Effort & Inspection: normal respiratory effort Auscultation: clear to auscultation bilaterally Cardio: Rate: regular rate Rhythm: regular rhythm Skin: General skin exam: normal color Rashes: no rashes Wounds: no wounds Neuro: General: patient oriented x3, moves all extremities, no meningeal signs and no focal motor deficits Speech: normal speech Extrem: General: normal to inspection and no clubbing, cyanosis or edema Psych: Mental Status: mental status grossly normal Affect: normal affect Attitude: cooperative Course Vital Signs Vital signs: Vital Signs Temperature 97.9 F 0
--- NOTE | 2023-11-24 14:26 | ECG_ITS ---
[facility] [address] Test Date: 2023-11-24 Pat Name: Kaela Salgado Department: Room: Gender: F Furniture Finisher: : 1980 Requested By: Stephany Shin Order Number: [id number] Cortney MD: Bautista Esquivel M.D. Measurements Intervals [place] Rate: 78 P: 47 NH: 162 QRS: -4 QRSD: 105 T: 34 QT: 341 QTc: 389 Interpretive Statements SINUS RHYTHM WITH SINUS ARRHYTHMIA POOR R-WAVE PROGRESSION ABNORMAL ECG No previous ECG available for comparison Electronically Signed On 11-25-2023 08:53:21 CDT by Bautista Esquivel M.D.
[2023-11-24 14:37] LABS: Basophils Percent Auto 0.4 % (0.2-1.2); Eosinophils Absolute Auto 0.1 K/mm3 (0-0.3); Eosinophils Percent Auto 0.9 % (0-4.4); Hematocrit 46.4 % (37.0-47.0); Hemoglobin 15.5 g/dL (12.0-15.0); Immature Granulocyte Absolute 0.02 K/mm3 (0.00-0.031); Immature Granulocyte Percent A 0.2 % (0-0.5); Lymphocytes Absolute Auto 2.13 K/mm3 (0.9-3.2); Lymphocytes Percent Auto 22.7 % (18.3-44.2); Mean Corpuscular HGB Conc 33.4 g/dl (32-36); Mean Corpuscular Hemoglobin 29.5 pg (26-34); Mean Corpuscular Volume 88.4 fl (80-100); Mean Platelet Volume 10.9 fl (7.4-10.4); Monocytes Absolute Auto 0.5 K/mm3 (0.1-0.6); Monocytes Percent Auto 5.4 % (2.6-8.5); Neutrophils Absolute Auto 6.6 K/mm3 (1.3-6.7); Neutrophils Percent Auto 70.4 % (45.5-73.1); Platelet Count Result 278 k/mm3 (150-375); Red Blood Count 5.25 M/mm3 (4.2-5.4); Red Cell Distribution Width 14.5 % (11.5-14.5); White Blood Count 9.4 K/mm3 (4.5-10.0)
[2023-11-24 14:51] LABS: Alanine Aminotransferase 31 U/L (6-35); Albumin Level 4.8 g/dL (3.5-5.1); Alkaline Phosphatase 103 U/L (38-126); Anion Gap 14 mmol/L (4-12); Aspartate Amino Transferase 30 U/L (14-36); Blood Urea Nitrogen 14 mg/dL (7-17); Calcium 9.6 mg/dL (8.4-10.2); Carbon Dioxide 21 mmol/L (22-30); Chloride 107 mmol/L (98-107); Estimated CRCL calculation 65 ml/min; Estimated Glomerular Filt Rate 55; Glucose 109 mg/dL (65-110); Magnesium 2.1 mg/dL (1.6-2.3); Potassium 3.5 mmol/L (3.4-5.0); Sodium 142 mmol/L (137-145)
[2023-11-24 16:01] VITALS: BP 110/76; PULSE 85; RESP 16; O2SAT 100
== END 2023-11-24 16:03 | disposition home or self-care (01) ==
PROVIDERS: Emergency Provider Emergency Medicine; PCP Nurse Practitioner Family
DX: R55 Syncope and collapse (principal); E11.9 Type 2 diabetes mellitus without complications; I10 Essential (primary) hypertension; E78.5 Hyperlipidemia, unspecified; E28.2 Polycystic ovarian syndrome; F41.9 Anxiety disorder, unspecified; Z79.85 Long-term (current) use of injectable non-insulin antidiabetic drugs; Z79.4 Long term (current) use of insulin; Z79.899 Other long term (current) drug therapy; Z79.3 Long term (current) use of hormonal contraceptives
CPT/HCPCS: 36415; 80053; 83735; 85025; 93005; 99283